=== PATIENT | female | born 1935 | race Caucasian/White ===

== ENCOUNTER 2017-05-07 05:11 | Emergency (ER) | payer OTHER ==
[~2017-05-07] VITALS: Ht 160 cm; Wt 50.0 kg
[~2017-05-07 05:11] MED LIST: DOCU-144 PO; HYD25 PO; HYDR-902 PO; UNKOWN HTN RX
[2017-05-07 05:13] VITALS: Ht 160 cm; Wt 50.0 kg
[2017-05-07 06:11] LABS: ADD SCAN DIFF NO
[2017-05-07 06:14] LABS: BASOPHIL # 0.1 10^3/ul (0.0-0.1); BASOPHILS % 1.4 % (0.0-2.0); EOSINOPHILS # 0.1 10^3/ul (0.0-0.5); EOSINOPHILS % 0.6 % (0.0-7.0); HEMATOCRIT 44.2 % (37.0-47.0); HEMOGLOBIN 15.3 g/dl (12.0-16.0); LYMPHOCYTES # 1.4 10^3/ul (0.8-2.9); LYMPHOCYTES % 13.8 % (15.0-51.0); MEAN CORPUSCULAR HEMOGLOBIN 35.7 pg (29.0-33.0); MEAN CORPUSCULAR HGB CONC 34.6 g/dl (32.0-37.0); MEAN CORPUSCULAR VOLUME 103.3 fl (82.0-101.0); MEAN PLATELET VOLUME 9.3 fl (7.4-10.4); MONOCYTE # 0.4 10^3/ul (0.3-0.9); MONOCYTES % 4.1 % (0.0-11.0); NEUTROPHIL # 8.2 10^3/ul (1.6-7.5); NEUTROPHILS % 79.6 % (39.0-77.0); PLATELET COUNT 140 10^3/UL (140-415); RED BLOOD COUNT 4.28 10^6/ul (4.20-5.40); RED CELL DISTRIBUTION WIDTH 12.7 % (11.5-14.5); WHITE BLOOD COUNT 10.3 10^3/ul (4.8-10.8)
--- NOTE | 2017-05-07 06:29 | ERD ---
ER Documentation Chief Complaint Date/Time DATE: 05/07/17 TIME: 06:26 Chief Complaint BRITNEY RODRIGUEZ from home, constipation, anal pain HPI Patient is an 82-year-old female who presents with 1 week of constipation associated with 1-2 days of rectal bleeding during straining. She states that she sees a few drops of blood in the toilet while straining to defecate. She feels like she needs to defecate, but is unable to pass stool. She reports a history of hemorrhoids. She reports that 2 weeks ago she was also constipated, and as she is trying to have a bowel movement, she had a large volume of bleeding. She did pass stool at that time, and the bleeding resolved. The patient denies abdominal pain, vomiting. She denies fever. ROS All systems reviewed and are negative except as per history of present illness. Medications Home Meds Active Scripts Hydrocortisone* Rectal (Preparation H* Cream) 1% - 26 Gm Cream.gm., 1 APPLIC [place] BID for 7 Days, #1 TUB Prov:HARLEEN KEBEDE MD 05/07/17 Polyethylene Glycol* (Miralax*) 17 Gm Powd.pack, 17 GM PO DAILY, #5 PACKET Prov:HARLEEN KEBEDE MD 05/07/17 Mineral Oil* (Fleet* Mineral Oil Enema) 133 Ml Oil, 133 ML NH NEEDED Y for CONSTIPATION, #3 ENEMA Prov:HARLEEN KEBEDE MD 05/07/17 Lidocaine (LIDOCAINE) 35.44 Gm Oint...g., 35.44 GM TP BID for 7 Days, #1 TUB Prov:HARLEEN KEBEDE MD 05/07/17 Discontinued Reported Medications [Unkown Htn Rx] No Conflict Check 06/25/16 Discontinued Scripts Hydrochlorothiazide* (Hydrochlorothiazide*) 25 Mg Tab, 25 MG PO DAILY, #30 TAB Prov:LC CORTEZ MD 06/25/16 Docusate Sodium* (Colace*) 100 Mg Capsule, 100 MG PO TID, #30 CAP Prov:LC CORTEZ MD 06/25/16 Hydrocodone/Acetaminophen (Issue 10-325 Tablet) 1 Each Tablet, 1 TAB PO Q6H Y for PAIN, #7 TAB Prov:LC CORTEZ MD 06/25/16 Allergies Allergies: Coded Allergies: No Known Allergies (Unverified Allergy, Unknown, 05/07/17) PMhx/Soc Past medical history: Psoriasis Past surgical history: Denies Social history: Patient drinks 1 glass filled 50% with vodka 2 times a day. She denies tobacco or illicit drugs. History of Surgery: No Anesthesia Reaction: No Hx Neurological Disorder: No Hx Respiratory Disorders: No Hx Cardiac Disorders: Yes (HTN, [place]) Hx Psychiatric Problems: No Hx Miscellaneous Medical Probl: Yes (HYPOTHYROID psoraisis) Hx Alcohol Use: Yes (2ce a day) Hx Substance Use: No Hx Tobacco Use: No Smoking Status: Never smoker FmHx Family History: No coronary disease, No diabetes Physical Exam Vitals Vital Signs Date Time Temp Pulse Resp B/P Pulse Ox O2 Delivery O2 Flow Rate FiO2 05/07/17 05:13 97.7 85 18 187/101 98 Physical Exam Const: Alert, no acute distress Head: Atraumatic Eyes: Normal Conjunctiva, no pallor, no icterus ENT: Normal External Ears, Nose and Mouth. Neck: Full range of motion..~ No meningismus. Resp: Clear to auscultation bilaterally, no wheezes, no rales Cardio: Regular rate and rhythm, no murmurs Abd: Soft, non tender, non distended. No guarding or rebound Rectal: Large external hemorrhoid, pink, soft, no active bleeding Skin: No petechiae or rashes Back: No midline or flank tenderness Ext: No cyanosis, or edema Neur: Awake and alert, cranial nerves II through XII intact bilaterally, strength and sensation full in 4 extremities. Psych: Normal Mood and Affect Result Diagram: 05/07/17 0550 05/07/17 0550 Results 24 hrs Laboratory Tests Test 05/07/17 05:50 White Blood Count 10.310^3/ul Red Blood Count 4.2810^6/ul Hemoglobin 15.3g/dl Hematocrit 44.2% Mean Corpuscular Volume 103.3fl Mean Corpuscular Hemoglobin 35.7pg Mean Corpuscular Hemoglobin Concent 34.6g/dl Red Cell Distribution Width 12.7% Platelet Count 11454^3/UL Mean Platelet Volume 9.3fl Neutrophils % 79.6% Lymphocytes % 13.8% Monocytes % 4.1% Eosinophils % 0.6% Basophils % 1.4% Nucleated Red Blood Cells % 0.0/100WBC Neutrophils # 8.210^3/ul Lymphocytes # 1.410^3/ul Monocytes # 0.410^3/ul Eosinophils # 0.110^3/ul Basophils # 0.110^3/ul Nucleated Red Blood Cells # 0.010^3/ul Prothrombin Time 13.1Sec Prothrombin Time Ratio 1.0 INR International Normalized Ratio 0.99 Activated Partial Thromboplast Time 27.1Sec Sodium Level 137mmol/L Potassium Level 3.1mmol/L Chloride Level 93mmol/L Carbon Dioxide Level 27mmol/L Anion Gap 20 Blood Urea Nitrogen 12mg/dl Creatinine 1.07mg/dl Glucose Level 142mg/dl Calcium Level 9.7mg/dl Total Bilirubin 1.2mg/dl Direct Bilirubin 0.00mg/dl Indirect Bilirubin 1.2mg/dl Aspartate Amino Transf (AST/SGOT) 65IU/L Alanine Aminotransferase (ALT/SGPT) 35IU/L Alkaline Phosphatase 106IU/L Total Protein 8.1g/dl Albumin 4.6g/dl Globulin 3.50g/dl Albumin/Globulin Ratio 1.31 Current Medications Medications (Trade) Dose Ordered Sig/Gage Route PRN Reason Start Time Stop Time Status Last Admin Dose Admin Sodium Biphosphate/ Sodium Phosphate (Fleet Enema) 133 ml ONCE ONCE NH 05/07/17 06:30 05/07/17 06:31 DC 05/07/17 06:58 Potassium Chloride (Klor-Con 20) 20 meq ONCE STAT PO 05/07/17 07:30 05/07/17 07:35 DC 05/07/17 08:26 Procedures/MDM MDM: Patient is an 82-year-old female who presents with 1 week of constipation associated with rectal pain and small amount of bleeding when she attempts to defecate. The patient was given an enema in the ER and was able to pass stool. KUB was performed and shows no evidence of fecal impaction or obstruction, but shows large amount of stool in the colon. The patient has a benign abdominal exam. The patient was found to have hypokalemia, but her labs are otherwise unremarkable. There is a normal hemoglobin and no evidence of significant blood loss. Her hemorrhoid is not thrombosed. I will discharge the patient with prescriptions for preparation H and topical lidocaine for hemorrhoid treatment, and MiraLAX and Fleet enema for treatment of constipation. I have advised patient to follow-up with her PMD if her symptoms do not improve in order to get a referral to colorectal surgery. Patient was given p.o. potassium for her hypokalemia. Departure Diagnosis: Primary Impression: Hemorrhoid Hemorrhoid type: unspecified Qualified Code: K64.9 - Hemorrhoids, unspecified hemorrhoid type Additional Impressions: Constipation Constipation type: unspecified constipation type Qualified Code: K59.00 - Constipation, unspecified constipation type Hypokalemia Condition: HARLEEN Paredes MD May 07, 2017 06:28
[2017-05-07] MEDS ORDERED: NA PHOSPHATE/BIPHOS 133 ML ENEMA PR ONE (06:30)
[2017-05-07 06:34] LABS: INR 0.99; PROTIME 13.1 Sec (12.2-14.2)
[2017-05-07 06:35] LABS: PARTIAL THROMBOPLASTIN TIME 27.1 Sec (25.0-35.0)
[2017-05-07 06:54] LABS: ALBUMIN 4.6 g/dl (3.3-4.9); ALBUMIN/GLOBULIN RATIO 1.31; BILIRUBIN,INDIRECT 1.2 mg/dl (0-1.1); BILIRUBIN,TOTAL 1.2 mg/dl (0.2-1.3); CALCIUM 9.7 mg/dl (8.4-10.2); CREATININE 1.07 mg/dl (0.44-1.00); POTASSIUM 3.1 mmol/L (3.5-5.1); TOTAL PROTEIN 8.1 g/dl (6.1-8.1)
[2017-05-07] MEDS ORDERED: POTASSIUM CHLORIDE (SR) 20 MEQ TAB PO STA (07:30)
--- NOTE | 2017-05-07 09:23 | RADRPT ---
PROCEDURE: XR Abdomen. CLINICAL INDICATION: constipation TECHNIQUE: AP abdomen x-ray. COMPARISON: None. FINDINGS: There is stool and bowel gas scattered throughout the colon. There is no evidence of small bowel ob struction. There are no abnormal calcifications overlying the urinary tracts. There are marked degenerative changes seen in the right hip joint. IMPRESSION: 1. Stool and bowel gas is seen throughout the colon. 2. Marked degenerative changes are seen in the right hip joint. RPTAT:AAJJ Physician Ben Date Time Electronically viewed and signed by Octavio Cisse Physician on 05/07/2017 09:22 /
[2017-05-07] MEDS ORDERED: LIDO5OI35 TP (09:50)
[2017-05-07] MEDS ORDERED: HYDR26CR PR (09:52)
[2017-05-07] MEDS ORDERED: POLY17PO6 PO (09:52)
[2017-05-07] MEDS ORDERED: FLEETOIL PR (09:52)
== END 2017-05-07 11:26 | disposition home or self-care (01) ==
LOC: E/R 05:11
DX: K64.9 Unspecified hemorrhoids (principal); E87.6 Hypokalemia; I10 Essential (primary) hypertension; R10.9 Unspecified abdominal pain
CPT/HCPCS: 36415; 74000; 80053; 85025; 85610; 85730; 86850; 86900; 86901; 93005

== ENCOUNTER 2017-09-03 21:33 | Inpatient (IN) | payer OTHER ==
[~2017-09-03] VITALS: Ht 157.5 cm; Wt 52.7 kg
[~2017-09-03 21:33] MED LIST changes: -DOCU-144 PO; -HYD25 PO; -HYDR-902 PO; +HYDR26CR PR; +LIDO35.415 TP; +MINE133E23 PR; +POLY17PO6 PO; -UNKOWN HTN RX
--- NOTE | 2017-09-04 00:46 | RADRPT ---
PROCEDURE: Left knee. CLINICAL INDICATION: Pain. TECHNIQUE: Three views including AP, lateral and oblique views of the left knee were obtained. T he images reviewed on a PACS workstation. COMPARISON: None. FINDINGS: There is no fracture, dislocation or bone destruction. There is moderate narrowing of the lateral c ompartment with marginal osteophytes present. There is spurring of the tibial spine. There is a mode rate joint effusion. Bone mineralization is decreased. There is no radiopaque foreign body or abno rmal calcification. IMPRESSION: No evidence of fracture. Moderate osteoarthritis. Moderate joint effusion. Osteopenia. .Ganga Vinson MD, MD Date Time Electronically viewed and signed by .Ganga Vinson MD, MD on 09/04/2017 00:45 .T/
--- NOTE | 2017-09-04 01:00 | ERD ---
ER Documentation Chief Complaint Chief Complaint BRITNEY [id number] FROM HOME,C/O LEFT LEG PAIN R/T TRIP & FALL FROM 2 DAYS AGO HPI This is an 82-year-old female with a past medical history of hypothyroidism, psoriasis, previous colectomy, no obvious history of dementia, unclear where she lives who is presenting via ambulance with concerns of a left knee injury. The patient reports that she hurt her knee several years ago and she is been dealing with pain and swelling in that leg then. At some point over the last few days, the patient endorses twisting her knee and she has been having difficulty with ambulation since then. The patient does not endorse any other traumatic injury. She denies headache or vision changes. She denies nausea or vomiting. She denies neck or back pain. She denies chest pain or trouble breathing. She denies abdominal pain. She denies changes to bowel movements urination. She denies any focal deficits. She denies any weakness or numbness or tingling to the face or extremities. That said, the patient is currently alert and oriented only to person. Based on previous records that have been reviewed, I do not see an obvious history of dementia. ROS All systems reviewed and are negative except as per history of present illness. Medications Home Meds Active Scripts Hydrocortisone* Rectal (Preparation H* Cream) 1% - 26 Gm Cream.gm., 1 APPLIC [place] BID for 7 Days, #1 TUB Prov:HARLEEN KEBEDE MD 05/07/17 Polyethylene Glycol* (Miralax*) 17 Gm Powd.pack, 17 GM PO DAILY, #5 PACKET Prov:HARLEEN KEBEDE MD 05/07/17 Mineral Oil* (Fleet* Mineral Oil Enema) 133 Ml Oil, 133 ML [place] NEEDED Y for CONSTIPATION, #3 ENEMA Prov:HARLEEN KEBEDE MD 05/07/17 Lidocaine (LIDOCAINE) 35.44 Gm Oint...g., 35.44 GM TP BID for 7 Days, #1 TUB Prov:HARLEEN KEBEDE MD 05/07/17 Allergies Allergies: Coded Allergies: No Known Allergies (Unverified Allergy, Unknown, 05/07/17) PMhx/Soc History of Surgery: No Anesthesia Reaction: No Hx Neurological Disorder: No Hx Respiratory Disorders: No Hx Cardiac Disorders: Yes (HTN, [place]) Hx Psychiatric Problems: No Hx Miscellaneous Medical Probl: Yes (HYPOTHYROID, psoriasis) Hx Alcohol Use: Yes (occasionally) Hx Substance Use: No Hx Tobacco Use: No Smoking Status: Never smoker FmHx Unable to ascertain from the patient Physical Exam Vitals Vital Signs Date Time Temp Pulse Resp B/P Pulse Ox O2 Delivery O2 Flow Rate FiO2 09/04/17 01:00 76 18 145/70 96 Room Air 09/03/17 21:44 97.0 82 18 155/72 94 Physical Exam Const: No apparent distress, well-developed, well-nourished Head: Atraumatic Eyes: Normal Conjunctiva. Extraocular movements intact. ENT: Normal External Ears, Nose and Mouth. Neck: Full range of motion. No meningismus. Resp: Clear to auscultation bilaterally Cardio: Regular rate and rhythm, no murmurs Abd: Soft, non tender, non distended. Normal bowel sounds Skin: No petechiae or rashes Back: No midline or flank tenderness Ext: No cyanosis, or edema. + Left Knee Effusion with tenderness and decreased ROM 2/2 discomfort. Popliteal and DP pulse intact. Strength and sensation intact distal to the knee. No warmth or erythema to the knee. Neur: Awake and alert, oriented 1 to person. Cranial nerves intact. No facial droop. Normal strength and sensation in all extremities. Coordination with finger to nose normal. Psych: Normal Mood and Affect Results 24 hrs Laboratory Tests Test 09/04/17 02:30 White Blood Count Pending Red Blood Count Pending Hemoglobin Pending Hematocrit Pending Mean Corpuscular Volume Pending Mean Corpuscular Hemoglobin Pending Mean Corpuscular Hemoglobin Concent Pending Red Cell Distribution Width Pending Platelet Count Pending Mean Platelet Volume Pending Procedures/MDM MDM The patient's presentation warrants further investigation. The patient's primary complaint is knee pain, which will be evaluated. However, the patient does appear to have signs of cognitive impairment. There is evidence to suggest that this is dementia, but the patient's baseline is unclear and there is no family to discuss her normal mental status. With the lack of information, I do intend to work her up more thoroughly for trauma. LABS - Pending IMAGING XR Knee FINDINGS: There is no fracture, dislocation or bone destruction. There is moderate narrowing of the lateral compartment with marginal osteophytes present. There is spurring of the tibial spine. There is a moderate joint effusion. Bone mineralization is decreased. There is no radiopaque foreign body or abnormal calcification. IMPRESSION: No evidence of fracture. Moderate osteoarthritis. Moderate joint effusion. Osteopenia. .Ganga Vinson MD, MD Date Time Electronically viewed and signed by .Ganga Vinson MD, MD on 09/04/2017 00:45 CXR FINDINGS: The heart is normal in size. The thoracic aortic arch is ectatic. The lungs are clear. There is no pleural effusion or pneumothorax. Senescent osseous changes are present. IMPRESSION: No acute pulmonary disease. Ectatic thoracic aortic arch. Senescent osseous changes. Electronically viewed and signed by Physician Sonia on 09/04/2017 02 :26 CT Head FINDINGS: There is no intracranial hemorrhage, mass effect, or midline shift. No extra-axial fluid collection is seen. Moderate generalized parenchymal volume loss is identified with compensatory ventricular and sulcal enlargement. Moderate decreased attenuation is seen in the periventricular and deep white matter, compatible with microvascular ischemic disease. There is a remote lacunar infarct within the left basal ganglia. The fisher white matter differentiation is well preserved with no acute infarct detected. The osseous structures . Minimal mucosal thickening of the posterior right ethmoid sinus is present. IMPRESSION: 1. No evidence of acute intracranial pathology. 2. Moderate diffuse generalized parenchymal volume loss. 3. There is moderate microvascular ischemic disease in the periventricular and deep white matter. 4. Remote lacunar infarct within the left basal ganglia. Electronically viewed and signed by Physician Sonia on 09/04/2017 02 :17 TREATMENT/DISPOSITION Given the patient's altered mentation, I am not convinced that she is safe to go home. She may require admission to the hospital for further assessment. The patient's only obvious injury is to that of the knee. I do not see obvious fracture, but ligamentous injury has not been ruled out. The patient was offered a therapeutic arthrocentesis, but she declined indicating to me that her knee pain had subsided some. The patient also declined an rigoberto wrap, a knee immobilizer and crutches. It is unclear what intervention that patient was hoping to have had completed in the ER. The patient was signed out to the oncoming ER physician pending her blood work. I suspect admission, but he final disposition will be made by the oncoming doctor once the full workup is completed. The patient is a poor historian, and given the lack of previous evidence of altered mentation, I suspect further underlying pathology beyond simply twisting her knee. The patient's blood pressure was elevated at greater than 120/80 while in the emergency department. The patient was otherwise stable with no evidence of hypertensive urgency or emergency. The patient will require reevaluation of his blood pressure in 2-3 days, but this may be completed by a primary care physician as an outpatient. She does not require admission for blood pressure control. Departure Diagnosis: Primary Impression: Left knee pain Chronicity: unspecified Qualified Code: M25.562 - Left knee pain, unspecified chronicity Additional Impressions: Effusion, left knee Altered mental status Altered mental status type: unspecified Qualified Code: R41.82 - Altered mental status, unspecified altered mental status type Condition: JESUS Peralta MD Sep 04, 2017 01:00
--- NOTE | 2017-09-04 02:18 | RADRPT ---
PROCEDURE: CT Brain without contrast. CLINICAL INDICATION: Trauma. TECHNIQUE: A CT of the brain was performed on a GE CT scanner utilizing axial imaging from the sku ll base through the vertex without intravenous contrast. Multiplanar reformatted images were made. The CTDIvol is 44.63 mGy and the DLP is 720.23 mGycm. One or more of the following dose reduction techniques were used: - Automated exposure control. - Adjustment of the mA and/or kV according to patient size. - Use of iterative reconstruction technique. COMPARISON: CT BRAIN 01/18/2009 FINDINGS: There is no intracranial hemorrhage, mass effect, or midline shift. No extra-axial fluid collection is seen. Moderate generalized parenchymal volume loss is identified with compensatory ventricular and sulcal enlargement. Moderate decreased attenuation is seen in the periventricular and deep whit e matter, compatible with microvascular ischemic disease. There is a remote lacunar infarct within t he left basal ganglia. The fisher white matter differentiation is well preserved with no acute infarct detected. The osseous structures . Minimal mucosal thickening of the posterior right ethmoid sinus is present . IMPRESSION: 1. No evidence of acute intracranial pathology. 2. Moderate diffuse generalized parenchymal volume loss. 3. There is moderate microvascular ischemic disease in the periventricular and deep white matter. 4. Remote lacunar infarct within the left basal ganglia. RPTAT: HRSR Physician Sonia Date Time Electronically viewed and signed by Physician Sonia on 09/04/2017 02:17 /
--- NOTE | 2017-09-04 02:26 | RADRPT ---
PROCEDURE: XR Chest. CLINICAL INDICATION: Trauma TECHNIQUE: Single portable view of the chest was obtained. COMPARISON: 04/01/2014. FINDINGS: The heart is normal in size. The thoracic aortic arch is ectatic. The lungs are clear. There is no pleural effusion or pneumothorax. Senescent osseous changes are present. IMPRESSION: 1. No acute pulmonary disease. 2. Ectatic thoracic aortic arch. 3. Senescent osseous changes. RPTAT: HRSR Physician Sonia Date Time Electronically viewed and signed by Physician Sonia on 09/04/2017 02:26 RR/
[2017-09-04 02:49] LABS: BASOPHIL # 0.1 10^3/ul (0.0-0.1); BASOPHILS % 0.7 % (0.0-2.0); EOSINOPHILS # 0.3 10^3/ul (0.0-0.5); EOSINOPHILS % 3.4 % (0.0-7.0); HEMATOCRIT 33.7 % (37.0-47.0); HEMOGLOBIN 11.5 g/dl (12.0-16.0); LYMPHOCYTES # 1.4 10^3/ul (0.8-2.9); LYMPHOCYTES % 16.3 % (15.0-51.0); MEAN CORPUSCULAR HEMOGLOBIN 35.4 pg (29.0-33.0); MEAN CORPUSCULAR HGB CONC 34.1 g/dl (32.0-37.0); MEAN CORPUSCULAR VOLUME 103.7 fl (82.0-101.0); MEAN PLATELET VOLUME 10.3 fl (7.4-10.4); MONOCYTE # 0.7 10^3/ul (0.3-0.9); MONOCYTES % 8.3 % (0.0-11.0); NEUTROPHIL # 5.9 10^3/ul (1.6-7.5); NEUTROPHILS % 70.8 % (39.0-77.0); RED BLOOD COUNT 3.25 10^6/ul (4.20-5.40); RED CELL DISTRIBUTION WIDTH 12.7 % (11.5-14.5); WHITE BLOOD COUNT 8.3 10^3/ul (4.8-10.8)
[2017-09-04 03:09] LABS: ALBUMIN 3.8 g/dl (3.3-4.9); BILIRUBIN,INDIRECT 0.6 mg/dl (0-1.1); BILIRUBIN,TOTAL 0.6 mg/dl (0.2-1.3); CALCIUM 9.6 mg/dl (8.4-10.2); CREATININE 0.72 mg/dl (0.44-1.00); POTASSIUM 3.7 mmol/L (3.5-5.1); TOTAL PROTEIN 7.8 g/dl (6.1-8.1)
[2017-09-04 03:26] LABS: PLATELET COUNT 211 10^3/UL (140-415); POSITIVE DIFF @See below
[2017-09-04 03:30] LABS: INR 1.18; PARTIAL THROMBOPLASTIN TIME 37.5 Sec (25.0-35.0); PROTIME 15.1 Sec (12.2-14.2); PT RATIO 1.2
[2017-09-04] MEDS ORDERED: ACETAMINOPHEN 500 MG TAB PO STA (03:36)
[2017-09-04] MEDS ORDERED: ACETAMINOPHEN 325 MG TAB PO PRN ×2 (06:00→09:30)
[2017-09-04] MEDS ORDERED: ONDANSETRON 4 MG INJ IV PRN ×2 (06:00→09:30)
[2017-09-04 08:19] VITALS: TEMP 98.3
--- NOTE | 2017-09-04 09:24 | HP ---
Date/Time of Note Date/Time of Note DATE: 09/04/17 TIME: 09:24 Assessment/Plan VTE Prophylaxis VTE Prophylaxis Intervention: LMWH Assessment/Plan Assessment/Plan 1. Left knee swelling secondary to fall - patient states she has been experiencing knee pain and swelling for the past 4 months but does not recollect her fall - Xray of knee showed no acute fractures, moderate osteoarthritis, moderate joint effusion, and Osteopenia. - Offered MRI but patient states her knee is fine and she just wants to rest. Will reevaluate in the am. -PT/OT evaluation ordered. Patient states she lives along and grandson comes to check on her 2. Gait instability - PT/OT evaluation - B12 and folate levels ordered 3. Anemia, macrocytic - iron deficient. will start on supplements - b12 and folate levels ordered 4. Hypothyroidism - will check TSH level - unsure what home dose patient on at home 5. Mild malnutrition - Boost with meals ordered - encourage PO intake - Patient states she can go all day at times without eating 6. ?Dementia - Oriented to self and place - unable to give clear history 7. Psoriasis - hydrocortisone for plaques 8. GI ppx - pepcid 9. DVT ppx - Lovenox 10. Diet - regular diet - Boost supplement 11. Code - Full 12. Disposition - Reassess knee in am if need for MRI - PT/OT evaluation for placement HPI/ROS Admit Date/Time Admit Date/Time Sep 04, 2017 at 05:34 Hx of Present Illness 82 yo F with PMH hypothyroidism, psoriasis, previous colectomy, no obvious history of dementia, and psoriasis presented to ED for left knee pain after a fall. Patient is a poor historian and states she has been experiencing left knee issues for the past 4 months. States does not remember fall a few days ago but has been falling often secondary to feeling unsteady on her feed. She also has been experiencing weight loss secondary to poor PO intake/appetite. She states she lives alone and grandson will come check on her from time to time. She denies any head trauma, dizziness, nausea, vomiting, headaches, chest pain, shortness of breath, or abdominal issues. She states that her knee has been swollen for months and states it will be okay and refused further imaging when offered MRI to assess for further injury. She would like to be left alone to rest and willing to work with physical therapy tomorrow. Denies any issues with urination, focal deficits, weakness or numbness to extremities. ROS All 12 systems reviewed and pertinent positives as per HPI. All others negative. Constitutional: fatigue, poor po, weight change, No diaphoresis, No nausea Eyes: no complaints ENT: no complaints Respiratory: No cough, No shortness of breath, No sputum, No wheezing Cardiovascular: No chest pain, No edema, No lightheadedness, No orthopenea, No palpitations Gastrointestinal: constipation, No diarrhea, No nausea, No pain, No vomiting Genitourinary: no complaints Musculoskeletal: bone/joint pain (left knee swelling and pain) Skin: No pruritis, No rash Neurologic: confusion, No dizziness, No focal-weakness, No headache, No syncope Endocrine: no complaints Lymphatic: no complaints Psychological: no complaints Immunologic: no complaints PMH/Family/Social Past Medical History Medical History: coronary artery disease, hypothyroid, other (psoriasis) Past Surgical History Past Surgical Hx: other (unable to obtain from patient but per old records, partial colectomy) Family History Significant Family History: no pertinent family hx Social History Alcohol Use: none Smoking Status: Never smoker Drug Use: none Exam/Review of Systems Vital Signs Vitals Vital Signs Date Time Temp Pulse Resp B/P Pulse Ox O2 Delivery O2 Flow Rate FiO2 09/04/17 08:19 98.3 77 20 178/89 99 Room Air Exam Constitutional: alert, frail, oriented Psych: nl mood/affect Head: atraumatic, normocephalic Eyes: EOMI, PERRL ENMT: mucosa pink and moist Neck: non-tender, supple Respiratory: clear to auscultation, No crackles/rales, No wheezing Cardiovascular: regular rate and rhythm, No murmurs/extra sounds, No systolic murmur Gastrointestinal: bowel sounds, non-tender, soft, No distended, No rebound or guarding Genitourinary - Female: No CVA tenderness Musculoskeletal: joint tenderness, swelling (left knee) Extremities: normal pulses, No calf tenderness, No clubbing, No edema Neurological: RAW [employer]PARER II-XII intact, confused, nl speech Skin: nl turgor Lymph: nl lymph nodes Labs Result Diagram: 09/04/17 0230 09/04/17 0230 Medications Medications Home medications reviewed Procedures Procedures PROCEDURE: Left knee. CLINICAL INDICATION: Pain. TECHNIQUE: Three views including AP, lateral and oblique views of the left knee were obtained. The images reviewed on a PACS workstation. COMPARISON: None. FINDINGS: There is no fracture, dislocation or bone destruction. There is moderate narrowing of the lateral compartment with marginal osteophytes present. There is spurring of the tibial spine. There is a moderate joint effusion. Bone mineralization is decreased. There is no radiopaque foreign body or abnormal calcification. IMPRESSION: No evidence of fracture. Moderate osteoarthritis. Moderate joint effusion. Osteopenia. PROCEDURE: XR Chest. CLINICAL INDICATION: Trauma TECHNIQUE: Single portable view of the chest was obtained. COMPARISON: 04/01/2014. FINDINGS: The heart is normal in size. The thoracic aortic arch is ectatic. The lungs are clear. There is no pleural effusion or pneumothorax. Senescent osseous changes are present. IMPRESSION: 1. No acute pulmonary disease. 2. Ectatic thoracic aortic arch. 3. Senescent osseous changes. PROCEDURE: CT Brain without contrast. CLINICAL INDICATION: Trauma. TECHNIQUE: A CT of the brain was performed on a [employer] CT scanner utilizing axial imaging from the skull base through the vertex without intravenous contrast. Multiplanar reformatted images were made. The CTDIvol is 44.63 mGy and the DLP is 720.23 mGycm. One or more of the following dose reduction techniques were used: - Automated exposure control. - Adjustment of the mA and/or kV according to patient size. - Use of iterative reconstruction technique. COMPARISON: CT BRAIN 01/18/2009 FINDINGS: There is no intracranial hemorrhage, mass effect, or midline shift. No extra- axial fluid collection is seen. Moderate generalized parenchymal volume loss is identified with compensatory ventricular and sulcal enlargement. Moderate decreased attenuation is seen in the periventricular and deep white matter, compatible with microvascular ischemic disease. There is a remote lacunar infarct within the left basal ganglia. The fisher white matter differentiation is well preserved with no acute infarct detected. The osseous structures . Minimal mucosal thickening of the posterior right ethmoid sinus is present. IMPRESSION: 1. No evidence of acute intracranial pathology. 2. Moderate diffuse generalized parenchymal volume loss. 3. There is moderate microvascular ischemic disease in the periventricular and deep white matter. 4. Remote lacunar infarct within the left basal ganglia. MANDY MÉNDEZ MD Sep 04, 2017 09:24
[2017-09-04 09:26] VITALS: BP 146/70; PULSE 74; RESP 20
[2017-09-04] MEDS ORDERED: NACL 0.9% 3 ML SYG IV SCH (09:30)
[2017-09-04] MEDS ORDERED: MAGNESIUM HYDROXIDE 30ML CUP PO PRN (09:30)
[2017-09-04] MEDS ORDERED: DOCUSATE SODIUM 100 MG CAP PO PRN (09:30)
[2017-09-04] MEDS: FAMOTIDINE 20 MG TAB PO SCH (10:00)
[2017-09-04] MEDS: HYDROCORTISONE 1% 28.35 GM OINT TOP SCH ×2 (10:48→21:29)
[2017-09-04 10:54] LABS: IRON 25 ug/dl (35-150)
[2017-09-04 11:04] LABS: TOTAL IRON BINDING CAPACITY 248 ug/dl (241-421)
[2017-09-04 11:34] VITALS: Ht 157.5 cm; Wt 52.7 kg
[2017-09-04 14:20] VITALS: BP 139/66; RESP 16
[2017-09-04] MEDS: HYDROCODONE/APAP (5/325) TAB PO PRN (18:54)
[2017-09-04 20:00] VITALS: BP 156/74; RESP 17
[2017-09-04 20:44] LABS: FOLATE 8.3 ng/ml (2.8-20.0)
[2017-09-05] VITALS (7 sets, daily range): BP systolic 124–179; BP diastolic 63–82; PULSE 78–91; RESP 16–18
[2017-09-05] MEDS: HYDROCODONE/APAP (5/325) TAB PO PRN ×2 (02:04→15:58)
[2017-09-05 06:06] LABS: BASOPHIL # 0.1 10^3/ul (0.0-0.1); EOSINOPHILS # 0.4 10^3/ul (0.0-0.5); EOSINOPHILS % 5.3 % (0.0-7.0); HEMATOCRIT 30.6 % (37.0-47.0); HEMOGLOBIN 10.1 g/dl (12.0-16.0); LYMPHOCYTES # 1.2 10^3/ul (0.8-2.9); LYMPHOCYTES % 17.7 % (15.0-51.0); MEAN CORPUSCULAR HEMOGLOBIN 33.9 pg (29.0-33.0); MEAN CORPUSCULAR VOLUME 102.7 fl (82.0-101.0); MEAN PLATELET VOLUME 9.9 fl (7.4-10.4); MONOCYTE # 0.7 10^3/ul (0.3-0.9); MONOCYTES % 10.2 % (0.0-11.0); NEUTROPHIL # 4.5 10^3/ul (1.6-7.5); NEUTROPHILS % 65.1 % (39.0-77.0); PLATELET COUNT 241 10^3/UL (140-415); RED BLOOD COUNT 2.98 10^6/ul (4.20-5.40); RED CELL DISTRIBUTION WIDTH 13.1 % (11.5-14.5)
[2017-09-05 06:33] LABS: CALCIUM 8.9 mg/dl (8.4-10.2); CREATININE 0.72 mg/dl (0.44-1.00); MAGNESIUM 1.9 mg/dl (1.7-2.5); PHOSPHORUS 3.9 mg/dl (2.5-4.9); POTASSIUM 3.4 mmol/L (3.5-5.1)
[2017-09-05 06:59] LABS: THYROID STIMULATING HORMONE 48.2 MIU/L (0.465-4.680)
[2017-09-05] MEDS: FERROUS SULFATE (EC) 325 MG TAB PO SCH (08:50)
[2017-09-05] MEDS: ENOXAPARIN 40 MG/0.4 ML SYG SC SCH (08:51)
[2017-09-05] MEDS: HYDROCORTISONE 1% 28.35 GM OINT TOP SCH ×2 (08:51→21:00)
[2017-09-05] MEDS: ASPIRIN 81 MG TAB PO SCH (08:52)
[2017-09-05] MEDS: FAMOTIDINE 20 MG TAB PO SCH (08:52)
[2017-09-05] MEDS ORDERED: INFLUENZA VIRUS VACCINE 0.5 ML (DISPENSING) IM* ONE (09:00)
[2017-09-05] MEDS ORDERED: POTASSIUM CHLORIDE (SR) 20 MEQ TAB PO STA (09:16)
--- NOTE | 2017-09-05 09:28 | PN ---
Date/Time of Note Date/Time of Note DATE: 09/05/17 TIME: 09:25 Assessment/Plan VTE Prophylaxis VTE Prophylaxis Intervention: SCD's Lines/Catheters IV [facility]from [facility] Saline Lock Assessment/Plan Chief Complaint/Hosp Course Assessment and plan 1. Left knee swelling secondary to recent fall. Patient with left knee x-ray negative for any fracture. It did show however some moderate joint effusion and osteopenia. MRI was offered however patient at this time still refusing. Continue physical therapy/Occupational Therapy. 2. Unsteady gait. Physical therapy follow. Continue fall precautions. 3. Anemia. Noted to be iron deficient. Continue iron supplement. 4. Hypothyroidism. Will start on Synthroid. 5. Mild malnutrition. Will get dietary consultation. Encourage oral intake. 6. Dementia. Continue fall precautions. Continue with reorientation. 7. History of psoriasis. Continue had a cortisone complex. Disposition and plan: Continue with physical therapy/Occupational Therapy. Patient reportedly lives alone. Will get social work to follow. Will start on hydralazine for elevated blood pressure. Continue in-house monitoring. Will likely need placement. Discussed plan of care with Dr. Sheldon Problems: Subjective 24 Hr Interval Summary Free Text/Dictation Slightly confused. She reports having some pain on left knee. Occupational therapist at bedside. Blood pressure noted to be elevated at this time. Exam/Review of Systems Vital Signs Vitals Vital Signs Date Time Temp Pulse Resp B/P Pulse Ox O2 Delivery O2 Flow Rate FiO2 09/05/17 08:08 98.3 79 16 166/76 95 09/04/17 09:26 Room Air Intake and Output 09/04/17 09/04/17 09/05/17 15:00 23:00 07:00 Intake Total 280 ml 440 ml Balance 280 ml 440 ml Exam Constitutional: alert (Forgetful) Head: normocephalic Eyes: nl conjunctiva Neck: supple Respiratory: clear to auscultation Cardiovascular: other (Regular rate) Gastrointestinal: non-tender, soft Musculoskeletal: swelling (Left knee. Pain on palpation) Neurological: nl speech (Alert to self and place) Skin: nl turgor Results Result Diagram: 09/05/17 0530 09/05/17 0530 Results 24 hrs Laboratory Tests Test 09/04/17 18:25 09/05/17 05:30 Vitamin B12 Level 362 Folate 8.3 White Blood Count 7.0 Red Blood Count 2.98 L Hemoglobin 10.1 L Hematocrit 30.6 L Mean Corpuscular Volume 102.7 H Mean Corpuscular Hemoglobin 33.9 H Mean Corpuscular Hemoglobin Concent 33.0 Red Cell Distribution Width 13.1 Platelet Count 241 Mean Platelet Volume 9.9 Neutrophils % 65.1 Lymphocytes % 17.7 Monocytes % 10.2 Eosinophils % 5.3 Basophils % 1.0 Nucleated Red Blood Cells % 0.0 Neutrophils # 4.5 Lymphocytes # 1.2 Monocytes # 0.7 Eosinophils # 0.4 Basophils # 0.1 Nucleated Red Blood Cells # 0.0 Sodium Level 142 Potassium Level 3.4 L Chloride Level 105 Carbon Dioxide Level 29 Anion Gap 11 Blood Urea Nitrogen 23 H Creatinine 0.72 Glucose Level 83 Calcium Level 8.9 Phosphorus Level 3.9 Magnesium Level 1.9 Thyroid Stimulating Hormone (TSH) 48.200 H Medications Medications Current Medications Ondansetron HCl (Zofran Inj) 4 mg Q6H PRN IV NAUSEA AND/OR VOMITING; Start 09/04/17 at 09:30 Acetaminophen (Tylenol Tab) 650 mg Q6H PRN PO PAIN LEVEL 1-3 OR FEVER; Start 09/04/17 at 09:30 Acetaminophen/ Hydrocodone Bitart ([place] (5/325)) 1 tab Q6H PRN PO MODERATE PAIN LEVEL 4-6 Last administered on 09/05/17 02:04; Admin Dose 1 TAB; Start at 09:30 Docusate Sodium (Colace) 100 mg Q12H PRN PO CONSTIPATION; Start 09/04/17 at 09: 30 Magnesium Hydroxide (Milk Of Mag) 30 ml DAILY PRN PO CONSTIPATION; Start at 09:30 Famotidine (Pepcid) 20 mg DAILY PO ; Start 09/04/17 at 10:00 Hydrocortisone (Hydrocortisone 1% Oint) 1 applic BID TOP Last administered on 09/05/17 08:51; Admin Dose 1 APPLIC; Start 09/04/17 at 11:00 Aspirin (Aspirin) 81 mg DAILY PO ; Start 09/05/17 at 09:00 Enoxaparin Sodium (Lovenox) 40 mg DAILY SC Last administered on 09/05/17 08:51 ; Admin Dose 40 MG; Start 09/05/17 at 09:00 Ferrous Sulfate (Ferrous Sulfate (Ec)) 325 mg DAILY PO Last administered on t 08:50; Admin Dose 325 MG; Start 09/05/17 at 09:00 Levothyroxine Sodium (Synthroid) 75 mcg DAILY@06 PO ; Start 09/05/17 at 09:30 KEERTHI MÉNDEZ Sep 05, 2017 09:28
[2017-09-05] MEDS: LEVOTHYROXINE 75 MCG TAB PO SCH (09:53)
[2017-09-05] MEDS: hydrALAzine 20 MG INJ IV PRN (13:42)
[2017-09-05] MEDS ORDERED: HALOPERIDOL 5 MG INJ ONE (20:12)
[2017-09-05] MEDS ORDERED: LORAZEPAM 2 MG INJ ONE ×2 (21:06→21:09)
[2017-09-05] MEDS ORDERED: HALOPERIDOL 5 MG INJ IM SCH (22:00)
[2017-09-05] MEDS ORDERED: LORAZEPAM 2 MG INJ IV PRN (22:00)
[2017-09-06 02:35] VITALS: BP 169/79; RESP 18
[2017-09-06] MEDS: LEVOTHYROXINE 75 MCG TAB PO SCH (05:41)
[2017-09-06 07:21] VITALS: BP 158/82; RESP 18
[2017-09-06] MEDS: ASPIRIN 81 MG TAB PO SCH (08:36)
[2017-09-06] MEDS: FAMOTIDINE 20 MG TAB PO SCH (08:36)
[2017-09-06] MEDS: FERROUS SULFATE (EC) 325 MG TAB PO SCH (08:36)
[2017-09-06] MEDS: HYDROCORTISONE 1% 28.35 GM OINT TOP SCH ×2 (08:37→20:36)
[2017-09-06] MEDS: HYDROCODONE/APAP (5/325) TAB PO PRN ×3 (08:42→23:12)
[2017-09-06] MEDS: ENOXAPARIN 40 MG/0.4 ML SYG SC SCH (08:45)
--- NOTE | 2017-09-06 09:21 | PN ---
Date/Time of Note Date/Time of Note DATE: 09/06/17 TIME: 09:13 Assessment/Plan VTE Prophylaxis VTE Prophylaxis Intervention: LMWH Lines/Catheters IV Catheter Type (from [facility]): Saline Lock Assessment/Plan Chief Complaint/Hosp Course Assessment and plan 1. Left knee swelling secondary to recent fall. Patient with left knee x-ray negative for any fracture. It did show however some moderate joint effusion and osteopenia. MRI was offered however patient at this time still refusing. Continue physical therapy/Occupational Therapy. 2. Unsteady gait. Physical therapy follow. Continue fall precautions. 3. Anemia. Noted to be iron deficient. Continue iron supplement. 4. Hypothyroidism. Will start on Synthroid. 5. Mild malnutrition. Will get dietary consultation. Encourage oral intake. 6. suspect hx Dementia. Continue fall precautions. Continue with reorientation. 7. History of psoriasis. Continue had a cortisone complex. Disposition and plan: Continue with physical therapy/Occupational Therapy. Patient reportedly lives alone. awaiting director of social work eval. Discussed with case management, will try for patient placement. Discussed plan of care with Dr. Sheldon Problems: Subjective 24 Hr Interval Summary Free Text/Dictation comfortable lying down. still has some pain on knee of palpation of left knee Exam/Review of Systems Vital Signs Vitals Vital Signs Date Time Temp Pulse Resp B/P Pulse Ox O2 Delivery O2 Flow Rate FiO2 09/06/17 07:21 98.0 80 18 158/82 96 09/04/17 09:26 Room Air Intake and Output 09/05/17 09/05/17 09/06/17 14:59 22:59 06:59 Intake Total 0 ml Balance 0 ml Exam Constitutional: alert (Forgetful) Head: normocephalic Eyes: nl conjunctiva Neck: supple Respiratory: clear to auscultation Cardiovascular: other (Regular rate) Gastrointestinal: non-tender, soft Musculoskeletal: swelling (Left knee. Pain on palpation) Neurological: nl speech (Alert to self and place) Skin: nl turgor Results Result Diagram: 09/05/17 0530 09/05/17 0530 Medications Medications Current Medications Ondansetron HCl (Zofran Inj) 4 mg Q6H PRN IV NAUSEA AND/OR VOMITING; Start 09/04/17 at 09:30 Acetaminophen (Tylenol Tab) 650 mg Q6H PRN PO PAIN LEVEL 1-3 OR FEVER; Start 09/04/17 at 09:30 Acetaminophen/ Hydrocodone Bitart ([place] (5/325)) 1 tab Q6H PRN PO MODERATE PAIN LEVEL 4-6 Last administered on 09/06/17 08:42; Admin Dose 1 TAB; Start at 09:30 Docusate Sodium (Colace) 100 mg Q12H PRN PO CONSTIPATION; Start 09/04/17 at 09: 30 Magnesium Hydroxide (Milk Of Mag) 30 ml DAILY PRN PO CONSTIPATION; Start at 09:30 Famotidine (Pepcid) 20 mg DAILY PO ; Start 09/04/17 at 10:00 Hydrocortisone (Hydrocortisone 1% Oint) 1 applic BID TOP Last administered on 09/05/17 08:51; Admin Dose 1 APPLIC; Start 09/04/17 at 11:00 Aspirin (Aspirin) 81 mg DAILY PO ; Start 09/05/17 at 09:00 Enoxaparin Sodium (Lovenox) 40 mg DAILY SC Last administered on 09/06/17 08:45 ; Admin Dose 40 MG; Start 09/05/17 at 09:00 Ferrous Sulfate (Ferrous Sulfate (Ec)) 325 mg DAILY PO Last administered on 08:50; Admin Dose 325 MG; Start 09/05/17 at 09:00 Levothyroxine Sodium (Synthroid) 75 mcg DAILY@06 PO Last administered on 09:53; Admin Dose 75 MCG; Start 09/05/17 at 09:30 Hydralazine HCl (Apresoline) 10 mg Q4H PRN IV sbp>160 Last administered on 09/05 13:42; Admin Dose 10 MG; Start 09/05/17 at 09:30 KEERTHI MÉNDEZ Sep 06, 2017 09:21
[2017-09-06 10:23] LABS: BASOPHIL # 0.1 10^3/ul (0.0-0.1); BASOPHILS % 0.9 % (0.0-2.0); EOSINOPHILS # 0.3 10^3/ul (0.0-0.5); EOSINOPHILS % 3.9 % (0.0-7.0); HEMATOCRIT 31.5 % (37.0-47.0); HEMOGLOBIN 10.6 g/dl (12.0-16.0); LYMPHOCYTES # 1.3 10^3/ul (0.8-2.9); LYMPHOCYTES % 19.6 % (15.0-51.0); MEAN CORPUSCULAR HEMOGLOBIN 35.1 pg (29.0-33.0); MEAN CORPUSCULAR HGB CONC 33.7 g/dl (32.0-37.0); MEAN CORPUSCULAR VOLUME 104.3 fl (82.0-101.0); MEAN PLATELET VOLUME 9.6 fl (7.4-10.4); MONOCYTE # 0.6 10^3/ul (0.3-0.9); MONOCYTES % 8.3 % (0.0-11.0); NEUTROPHIL # 4.4 10^3/ul (1.6-7.5); NEUTROPHILS % 66.8 % (39.0-77.0); PLATELET COUNT 267 10^3/UL (140-415); RED BLOOD COUNT 3.02 10^6/ul (4.20-5.40); RED CELL DISTRIBUTION WIDTH 13.2 % (11.5-14.5); WHITE BLOOD COUNT 6.6 10^3/ul (4.8-10.8)
[2017-09-06 10:39] LABS: CALCIUM 9.3 mg/dl (8.4-10.2); CREATININE 0.69 mg/dl (0.44-1.00); POTASSIUM 3.8 mmol/L (3.5-5.1)
[2017-09-06 15:40] VITALS: BP 169/92; PULSE 85
[2017-09-06] MEDS: hydrALAzine 20 MG INJ IV PRN ×2 (15:43→20:35)
[2017-09-06 16:11] VITALS: BP_SYST 150; BP_SYST 250; BP_DIAS 80; PULSE 89
[2017-09-06 21:13] VITALS: BP 160/88; RESP 18
[2017-09-06 23:00] VITALS: BP 138/84; PULSE 89
[2017-09-07 02:47] VITALS: BP 167/77; RESP 18
[2017-09-07] MEDS: hydrALAzine 20 MG INJ IV PRN (03:12)
[2017-09-07 04:11] VITALS: BP 118/59
[2017-09-07] MEDS: HYDROCODONE/APAP (5/325) TAB PO PRN (05:22)
[2017-09-07] MEDS: LEVOTHYROXINE 75 MCG TAB PO SCH (05:22)
[2017-09-07 07:22] VITALS: BP 137/68; RESP 17
[2017-09-07] MEDS: FAMOTIDINE 20 MG TAB PO SCH (09:00)
[2017-09-07] MEDS: ASPIRIN 81 MG TAB PO SCH (09:00)
[2017-09-07] MEDS: FERROUS SULFATE (EC) 325 MG TAB PO SCH (09:00)
[2017-09-07] MEDS: HYDROCORTISONE 1% 28.35 GM OINT TOP SCH ×2 (09:04→20:44)
[2017-09-07] MEDS: ENOXAPARIN 40 MG/0.4 ML SYG SC SCH (09:09)
--- NOTE | 2017-09-07 09:46 | PN ---
Date/Time of Note Date/Time of Note DATE: 09/07/17 TIME: 09:41 Assessment/Plan VTE Prophylaxis VTE Prophylaxis Intervention: SCD's Lines/Catheters IV [facility] Saline Lock Urinary Cath still in place: No Assessment/Plan Chief Complaint/Hosp Course Assessment and plan 1. Left knee swelling secondary to recent fall. Patient with left knee x-ray negative for any fracture. It did show however some moderate joint effusion and osteopenia. MRI was offered however patient at this time still refusing. Continue physical therapy/Occupational Therapy. 2. Unsteady gait. Physical therapy follow. Continue fall precautions. 3. Anemia. Noted to be iron deficient. Continue iron supplement. 4. Hypothyroidism. continue synthroid 5. Mild malnutrition. encourage oral intake. dietitian was consulted 6. suspect hx Dementia. Continue fall precautions. Continue with reorientation. 7. History of psoriasis. Continue had a cortisone complex. Disposition and plan: Continue with physical therapy/Occupational Therapy. plan for placement. will follow up case technician Discussed plan of care with Dr. Sheldon Problems: Subjective 24 Hr Interval Summary Free Text/Dictation no reports of left knee pain at this time Exam/Review of Systems Vital Signs Vitals Vital Signs Date Time Temp Pulse Resp B/P Pulse Ox O2 Delivery O2 Flow Rate FiO2 09/07/17 07:22 97.9 85 17 137/68 97 09/04/17 09:26 Room Air Intake and Output 09/06/17 09/06/17 09/07/17 15:00 23:00 07:00 Intake Total 500 ml 220 ml Balance 500 ml 220 ml Exam Constitutional: alert (Forgetful) unchanged Head: normocephalic Eyes: nl conjunctiva Neck: supple Respiratory: clear to auscultation Cardiovascular: other (Regular rate) Gastrointestinal: non-tender, soft Musculoskeletal: swelling (Left knee. Pain on palpation) Neurological: nl speech (Alert to self and place) Skin: nl turgor Results Result Diagram: 09/06/17 1005 09/06/17 1004 Results 24 hrs Laboratory Tests Test 09/06/17 10:04 09/06/17 10:05 Sodium Level 143 Potassium Level 3.8 Chloride Level 106 Carbon Dioxide Level 28 Anion Gap 13 Blood Urea Nitrogen 19 Creatinine 0.69 Glucose Level 89 Calcium Level 9.3 White Blood Count 6.6 Red Blood Count 3.02 L Hemoglobin 10.6 L Hematocrit 31.5 L Mean Corpuscular Volume 104.3 H Mean Corpuscular Hemoglobin 35.1 H Mean Corpuscular Hemoglobin Concent 33.7 Red Cell Distribution Width 13.2 Platelet Count 267 Mean Platelet Volume 9.6 Neutrophils % 66.8 Lymphocytes % 19.6 Monocytes % 8.3 Eosinophils % 3.9 Basophils % 0.9 Nucleated Red Blood Cells % 0.0 Neutrophils # 4.4 Lymphocytes # 1.3 Monocytes # 0.6 Eosinophils # 0.3 Basophils # 0.1 Nucleated Red Blood Cells # 0.0 Medications Medications Current Medications Ondansetron HCl (Zofran Inj) 4 mg Q6H PRN IV NAUSEA AND/OR VOMITING; Start 09/04/17 at 09:30 Acetaminophen (Tylenol Tab) 650 mg Q6H PRN PO PAIN LEVEL 1-3 OR FEVER; Start 09/04/17 at 09:30 Acetaminophen/ Hydrocodone Bitart ([place] (5/325)) 1 tab Q6H PRN PO MODERATE PAIN LEVEL 4-6 Last administered on 09/07/17 05:22; Admin Dose 1 TAB; Start at 09:30 Docusate Sodium (Colace) 100 mg Q12H PRN PO CONSTIPATION; Start 09/04/17 at 09: 30 Magnesium Hydroxide (Milk Of Mag) 30 ml DAILY PRN PO CONSTIPATION; Start at 09:30 Famotidine (Pepcid) 20 mg DAILY PO ; Start 09/04/17 at 10:00 Hydrocortisone (Hydrocortisone 1% Oint) 1 applic BID TOP Last administered on 09/07/17 09:04; Admin Dose 1 APPLIC; Start 09/04/17 at 11:00 Aspirin (Aspirin) 81 mg DAILY PO ; Start 09/05/17 at 09:00 Enoxaparin Sodium (Lovenox) 40 mg DAILY SC Last administered on 09/07/17 09:09 ; Admin Dose 40 MG; Start 09/05/17 at 09:00 Ferrous Sulfate (Ferrous Sulfate (Ec)) 325 mg DAILY PO Last administered on 08:50; Admin Dose 325 MG; Start 09/05/17 at 09:00 Levothyroxine Sodium (Synthroid) 75 mcg DAILY@06 PO Last administered on 05:22; Admin Dose 75 MCG; Start 09/05/17 at 09:30 Hydralazine HCl (Apresoline) 10 mg Q4H PRN IV sbp>160 Last administered on 09/07 03:12; Admin Dose 10 MG; Start 09/05/17 at 09:30 KEERTHI MÉNDEZ Sep 07, 2017 09:46
[2017-09-07 10:01] LABS: CALCIUM 9.6 mg/dl (8.4-10.2); CREATININE 0.64 mg/dl (0.44-1.00); POTASSIUM 3.5 mmol/L (3.5-5.1)
[2017-09-07] MEDS: AMLODIPINE 5 MG TAB PO SCH ×2 (10:11→20:44)
--- NOTE | 2017-09-07 15:39 | RADRPT ---
PROCEDURE: MRI OF THE LEFT KNEE CLINICAL INDICATION: Worsening left knee pain, fall 1 year ago TECHNIQUE: MRI images of the left knee were obtained utilizing in multiple planes using multiple p ulse sequences. Images were interpreted on a high-resolution PACS system. COMPARISON: Radiographs of the left knee dated September 03, 2017 FINDINGS: Medial compartment: There is no evidence for meniscal degeneration or tear. There is mild to modera te chondral loss and fissuring at the weightbearing medial femorotibial compartment. The medial supp orting structures are slightly bowed but intact.. Lateral compartment: There is extensive degenerative tearing and maceration of the entire lateral me niscus with diffuse full-thickness chondral loss throughout the majority of the lateral femorotibial compartment (sagittal 7 and coronal 20). There is chronic bone remodelling of the lateral femoral c ondyle and lateral tibial plateau. The lateral supporting structures are intact. Mild stress respons e in the medial and lateral tibial plateaus as noted. Intercondylar notch: The anterior and posterior cruciate ligaments are intact. Patellofemoral joint: There is moderate grade chondral loss at the central trochlea with chondral th inning over the patella. The quadriceps and the patellar tendons are intact. Other findings: There is a moderate to large knee joint effusion with synovitis and synovial prolife ration. There is no acute fracture. IMPRESSION: 1. Tricompartmental osteoarthrosis, severe and predominant in the lateral femorotibial compartment. 2. Circumferential degenerative tearing and maceration of the lateral meniscus. 3. Moderate to large knee joint effusion with prominent synovitis. 4. No acute fracture or acute ligamentous abnormality. RPTAT: UU .Enio Bynum MD, Date Time Electronically viewed and signed by .Enio Bynum MD, on 09/07/2017 15:38 .K/
[2017-09-07 17:42] VITALS: BP 116/74; PULSE 120; RESP 18
[2017-09-07 20:29] VITALS: BP 153/74; RESP 20
[2017-09-08] MEDS: LEVOTHYROXINE 75 MCG TAB PO SCH (05:46)
[2017-09-08] MEDS: ASPIRIN 81 MG TAB PO SCH (09:00)
[2017-09-08] MEDS: AMLODIPINE 5 MG TAB PO SCH ×2 (09:00→21:00)
[2017-09-08] MEDS: FAMOTIDINE 20 MG TAB PO SCH (09:00)
[2017-09-08] MEDS: FERROUS SULFATE (EC) 325 MG TAB PO SCH (09:00)
[2017-09-08] MEDS: ENOXAPARIN 40 MG/0.4 ML SYG SC SCH (09:23)
[2017-09-08] MEDS: HYDROCORTISONE 1% 28.35 GM OINT TOP SCH ×2 (09:25→21:00)
--- NOTE | 2017-09-08 09:40 | PN ---
Date/Time of Note Date/Time of Note DATE: 09/08/17 TIME: 09:38 Assessment/Plan VTE Prophylaxis VTE Prophylaxis Intervention: LMWH Lines/Catheters IV Catheter Type (from [facility]): Saline Lock Urinary Cath still in place: No Assessment/Plan Chief Complaint/Hosp Course Assessment and plan 1. Left knee swelling secondary to recent fall. Patient with left knee x-ray negative for any fracture. It did show however some moderate joint effusion and osteopenia. MRI of left knee done 09/07/17 showed: -Tricompartmental osteoarthrosis, severe and predominant in the lateral femorotibial compartment. -Circumferential degenerative tearing and maceration of the lateral meniscus. - Moderate to large knee joint effusion with prominent synovitis. - No acute fracture or acute ligamentous abnormality. PT/OT is following. Orthopedic surgeon to follow. 2. Unsteady gait. Physical therapy follow. Continue fall precautions. 3. Anemia. Noted to be iron deficient. Continue iron supplement. 4. Hypothyroidism. continue synthroid 5. Mild malnutrition. encourage oral intake. dietitian was consulted 6. suspect hx Dementia. Continue fall precautions. Continue with reorientation. 7. History of psoriasis. Continue had a cortisone complex. Disposition and plan: Continue with analgesics. Physical therapy following. Orthopedic surgeon to follow Discussed plan of care with Dr. Sheldon Problems: Subjective 24 Hr Interval Summary Free Text/Dictation Still reportedly has some left knee pain. Difficulty with ambulation. Exam/Review of Systems Vital Signs Vitals Vital Signs Date Time Temp Pulse Resp B/P Pulse Ox O2 Delivery O2 Flow Rate FiO2 09/07/17 20:29 97.9 80 20 153/74 95 09/04/17 09:26 Room Air Intake and Output 09/07/17 09/07/17 09/08/17 15:00 23:00 07:00 Intake Total 400 ml 400 ml Balance 400 ml 400 ml Exam Constitutional: alert, no s/s of distress Head: normocephalic Eyes: nl conjunctiva Neck: supple Respiratory: clear to auscultation Cardiovascular: other (Regular rate) Gastrointestinal: non-tender, soft Musculoskeletal: swelling (Left knee. Pain on palpation) unchanged Neurological: nl speech (Alert to self and place) Skin: nl turgor Results Result Diagram: 09/06/17 1005 09/07/17 0918 Medications Medications Current Medications Ondansetron HCl (Zofran Inj) 4 mg Q6H PRN IV NAUSEA AND/OR VOMITING; Start 09/04/17 at 09:30 Acetaminophen (Tylenol Tab) 650 mg Q6H PRN PO PAIN LEVEL 1-3 OR FEVER; Start 09/04/17 at 09:30 Acetaminophen/ Hydrocodone Bitart ([place] (5/325)) 1 tab Q6H PRN PO MODERATE PAIN LEVEL 4-6 Last administered on 09/07/17 05:22; Admin Dose 1 TAB; Start at 09:30 Docusate Sodium (Colace) 100 mg Q12H PRN PO CONSTIPATION Last administered on 09/07/17 17:05; Admin Dose 100 MG; Start 09/04/17 at 09:30 Magnesium Hydroxide (Milk Of Mag) 30 ml DAILY PRN PO CONSTIPATION; Start at 09:30 Famotidine (Pepcid) 20 mg DAILY PO ; Start 09/04/17 at 10:00 Hydrocortisone (Hydrocortisone 1% Oint) 1 applic BID TOP Last administered on 09/08/17 09:25; Admin Dose 1 APPLIC; Start 09/04/17 at 11:00 Aspirin (Aspirin) 81 mg DAILY PO ; Start 09/05/17 at 09:00 Enoxaparin Sodium (Lovenox) 40 mg DAILY SC Last administered on 09/08/17 09:23 ; Admin Dose 40 MG; Start 09/05/17 at 09:00 Ferrous Sulfate (Ferrous Sulfate (Ec)) 325 mg DAILY PO Last administered on 08:50; Admin Dose 325 MG; Start 09/05/17 at 09:00 Levothyroxine Sodium (Synthroid) 75 mcg DAILY@06 PO Last administered on 05:46; Admin Dose 75 MCG; Start 09/05/17 at 09:30 Hydralazine HCl (Apresoline) 10 mg Q4H PRN IV sbp>160 Last administered on 09/07 03:12; Admin Dose 10 MG; Start 09/05/17 at 09:30 Amlodipine Besylate (Norvasc) 5 mg BID PO Last administered on 09/07/17 20:44 ; Admin Dose 5 MG; Start 09/07/17 at 10:00 KEERTHI MÉNDEZ Sep 08, 2017 09:40
[2017-09-09] MEDS: LEVOTHYROXINE 75 MCG TAB PO SCH (06:00)
[2017-09-09 07:16] LABS: CALCIUM 9.5 mg/dl (8.4-10.2); CREATININE 0.63 mg/dl (0.44-1.00); POTASSIUM 3.4 mmol/L (3.5-5.1)
[2017-09-09] MEDS: FAMOTIDINE 20 MG TAB PO SCH (09:00)
[2017-09-09] MEDS: ASPIRIN 81 MG TAB PO SCH (09:00)
[2017-09-09] MEDS: AMLODIPINE 5 MG TAB PO SCH ×2 (09:00→22:38)
[2017-09-09] MEDS: FERROUS SULFATE (EC) 325 MG TAB PO SCH (09:00)
[2017-09-09] MEDS: HYDROCORTISONE 1% 28.35 GM OINT TOP SCH ×2 (09:57→21:00)
[2017-09-09] MEDS: ENOXAPARIN 40 MG/0.4 ML SYG SC SCH (09:58)
--- NOTE | 2017-09-09 14:32 | PN ---
Date/Time of Note Date/Time of Note DATE: 09/09/17 TIME: 14:30 Assessment/Plan VTE Prophylaxis VTE Prophylaxis Intervention: SCD's Lines/Catheters IV Catheter Type (from Nrsg): Saline Lock Urinary Cath still in place: No Assessment/Plan Chief Complaint/Hosp Course Subjective: Events noted. Pain stable. No dyspnea. Objective: Vital signs stable Physical exam No pallor droop Regular Clear Benign No edema Neuro: Nonfocal Assessment and plan 1. Left lateral meniscal tear; osteoarthritic. Stable treat pain. Appreciate/ pending Ortho consult. May need PT and snf/DME. 2. Mechanical fall 3. Dementia? 4. Hypothyroidism 5. Anemia 6. Problems: Exam/Review of Systems Vital Signs Vitals Vital Signs Date Time Temp Pulse Resp B/P Pulse Ox O2 Delivery O2 Flow Rate FiO2 09/07/17 20:29 97.9 80 20 153/74 95 Intake and Output 09/08/17 09/08/17 09/09/17 15:00 23:00 07:00 Intake Total 360 ml 360 ml Balance 360 ml 360 ml Results Result Diagram: 09/06/17 1005 09/09/17 0547 Results 24 hrs Laboratory Tests Test 09/09/17 05:47 Sodium Level 142 Potassium Level 3.4 L Chloride Level 103 Carbon Dioxide Level 30 Anion Gap 12 Blood Urea Nitrogen 15 Creatinine 0.63 Glucose Level 99 Calcium Level 9.5 Medications Medications Current Medications Ondansetron HCl (Zofran Inj) 4 mg Q6H PRN IV NAUSEA AND/OR VOMITING; Start 09/04/17 at 09:30 Acetaminophen (Tylenol Tab) 650 mg Q6H PRN PO PAIN LEVEL 1-3 OR FEVER; Start 09/04/17 at 09:30 Acetaminophen/ Hydrocodone Bitart ([place] (5/325)) 1 tab Q6H PRN PO MODERATE PAIN LEVEL 4-6 Last administered on 09/07/17 05:22; Admin Dose 1 TAB; Start at 09:30 Docusate Sodium (Colace) 100 mg Q12H PRN PO CONSTIPATION Last administered on 09/07/17 17:05; Admin Dose 100 MG; Start 09/04/17 at 09:30 Magnesium Hydroxide (Milk Of Mag) 30 ml DAILY PRN PO CONSTIPATION; Start at 09:30 Famotidine (Pepcid) 20 mg DAILY PO ; Start 09/04/17 at 10:00 Hydrocortisone (Hydrocortisone 1% Oint) 1 applic BID TOP Last administered on 09/09/17 09:57; Admin Dose 1 APPLIC; Start 09/04/17 at 11:00 Aspirin (Aspirin) 81 mg DAILY PO ; Start 09/05/17 at 09:00 Enoxaparin Sodium (Lovenox) 40 mg DAILY SC Last administered on 09/09/17 09: 58; Admin Dose 40 MG; Start 09/05/17 at 09:00 Ferrous Sulfate (Ferrous Sulfate (Ec)) 325 mg DAILY PO Last administered on 08:50; Admin Dose 325 MG; Start 09/05/17 at 09:00 Levothyroxine Sodium (Synthroid) 75 mcg DAILY@06 PO Last administered on 05:46; Admin Dose 75 MCG; Start 09/05/17 at 09:30 Hydralazine HCl (Apresoline) 10 mg Q4H PRN IV sbp>160 Last administered on 09/07 03:12; Admin Dose 10 MG; Start 09/05/17 at 09:30 Amlodipine Besylate (Norvasc) 5 mg BID PO Last administered on 09/07/17 20:44 ; Admin Dose 5 MG; Start 09/07/17 at 10:00 ALLEY FELDMAN MD Sep 09, 2017 14:32
[2017-09-09] MEDS: HYDROCODONE/APAP (5/325) TAB PO PRN (16:04)
[2017-09-09] MEDS: DOCUSATE SODIUM 100 MG CAP PO SCH (21:00)
[2017-09-09 22:46] VITALS: BP 197/96; RESP 20
[2017-09-09] MEDS ORDERED: hydrALAzine 20 MG INJ IV PRN (23:00)
[2017-09-10] MEDS: LEVOTHYROXINE 75 MCG TAB PO SCH (05:49)
[2017-09-10 08:00] VITALS: BP 168/81; RESP 18
[2017-09-10 08:41] LABS: BASOPHIL # 0.1 10^3/ul (0.0-0.1); BASOPHILS % 0.8 % (0.0-2.0); EOSINOPHILS # 0.2 10^3/ul (0.0-0.5); EOSINOPHILS % 2.6 % (0.0-7.0); HEMATOCRIT 33.2 % (37.0-47.0); HEMOGLOBIN 11.3 g/dl (12.0-16.0); LYMPHOCYTES # 1.4 10^3/ul (0.8-2.9); MEAN CORPUSCULAR HEMOGLOBIN 34.6 pg (29.0-33.0); MEAN CORPUSCULAR VOLUME 101.5 fl (82.0-101.0); MEAN PLATELET VOLUME 9.7 fl (7.4-10.4); MONOCYTE # 0.7 10^3/ul (0.3-0.9); MONOCYTES % 9.5 % (0.0-11.0); NEUTROPHIL # 5.3 10^3/ul (1.6-7.5); NEUTROPHILS % 68.7 % (39.0-77.0); PLATELET COUNT 287 10^3/UL (140-415); RED BLOOD COUNT 3.27 10^6/ul (4.20-5.40); WHITE BLOOD COUNT 7.7 10^3/ul (4.8-10.8)
[2017-09-10 08:58] LABS: ALBUMIN 3.3 g/dl (3.3-4.9); ALBUMIN/GLOBULIN RATIO 0.82; BILIRUBIN,INDIRECT 0.4 mg/dl (0-1.1); BILIRUBIN,TOTAL 0.4 mg/dl (0.2-1.3); CALCIUM 9.2 mg/dl (8.4-10.2); CREATININE 0.62 mg/dl (0.44-1.00); MAGNESIUM 1.8 mg/dl (1.7-2.5); PHOSPHORUS 3.5 mg/dl (2.5-4.9); POTASSIUM 3.3 mmol/L (3.5-5.1); TOTAL PROTEIN 7.3 g/dl (6.1-8.1)
[2017-09-10] MEDS: HYDROCORTISONE 1% 28.35 GM OINT TOP SCH ×2 (09:00→21:00)
[2017-09-10] MEDS: AMLODIPINE 5 MG TAB PO SCH ×2 (09:13→20:23)
[2017-09-10] MEDS: FAMOTIDINE 20 MG TAB PO SCH (09:15)
[2017-09-10] MEDS: ASPIRIN 81 MG TAB PO SCH (09:15)
[2017-09-10] MEDS: FERROUS SULFATE (EC) 325 MG TAB PO SCH (09:15)
[2017-09-10] MEDS: ENOXAPARIN 40 MG/0.4 ML SYG SC SCH (09:22)
[2017-09-10] MEDS ORDERED: POTASSIUM CHLORIDE (SR) 10 MEQ TAB PO ONE (10:00)
--- NOTE | 2017-09-10 10:51 | PN ---
Date/Time of Note Date/Time of Note DATE: 09/10/17 TIME: 10:50 Assessment/Plan VTE Prophylaxis VTE Prophylaxis Intervention: LMWH Lines/Catheters IV Catheter Type (from [facility]): Saline Lock Urinary Cath still in place: No Assessment/Plan Chief Complaint/Hosp Course 1. Left knee pain and swelling. Left knee MRI showing tricompartmental osteoarthrosis, severe and predominantly in the lateral femorotibial compartment with circumferential degenerative tearing and maceration of the lateral meniscus with moderate to large knee joint effusion with prominent synovitis. Continue pain control. Pending orthopedic surgery evaluation. 2. Iron deficiency anemia. Continue iron supplements. 3. Essential hypertension. Continue antihypertensives. 4. Hypothyroidism. Continue Synthroid. 5. Dementia. Continue frequent reorientation. 6. Psoriasis. Continue topical cortisone cream. 7. Fluids, electrolytes, and nutrition. Regular diet. 8. DVT prophylaxis. Subcutaneous Lovenox. 9. Plan. Continue pain control. Replete potassium. Await orthopedic surgery evaluation and recommendations. Case discussed with Dr. Sheldon. Problems: Subjective 24 Hr Interval Summary Free Text/Dictation Patient remains afebrile. Exam/Review of Systems Vital Signs Vitals Vital Signs Date Time Temp Pulse Resp B/P Pulse Ox O2 Delivery O2 Flow Rate FiO2 09/10/17 08:00 97.7 78 18 168/81 98 Intake and Output 09/09/17 09/09/17 09/10/17 14:59 22:59 06:59 Intake Total 460 ml 120 ml Balance 460 ml 120 ml Exam General: Adequately build 82 year-old female lying in bed in no apparent distress. HEENT: Normocephalic, atraumatic. Eyes: Anicteric sclerae, conjunctivae clear. ENT: Nasal septum midline, oral mucosa moist. Neck supple, no JVD noticed. Respiratory: Bilaterally clear breath sounds. No use of accessory muscles of respiration. No adventitious breath sounds. Cardiovascular: S1, S2 heard. Regular rate and rhythm. Abdomen: Soft, nontender, and nondistended. Bowel sounds positive in all 4 quadrants. Genitourinary: Deferred. Extremities: No cyanosis, no clubbing, no edema. Left knee swelling with tenderness to touch. Neurologic: Somnolent. Results Result Diagram: 09/10/17 0703 09/10/17 0703 Results 24 hrs Laboratory Tests Test 09/10/17 07:03 White Blood Count 7.7 Red Blood Count 3.27 L Hemoglobin 11.3 L Hematocrit 33.2 L Mean Corpuscular Volume 101.5 H Mean Corpuscular Hemoglobin 34.6 H Mean Corpuscular Hemoglobin Concent 34.0 Red Cell Distribution Width 13.0 Platelet Count 287 Mean Platelet Volume 9.7 Neutrophils % 68.7 Lymphocytes % 18.0 Monocytes % 9.5 Eosinophils % 2.6 Basophils % 0.8 Nucleated Red Blood Cells % 0.0 Neutrophils # 5.3 Lymphocytes # 1.4 Monocytes # 0.7 Eosinophils # 0.2 Basophils # 0.1 Nucleated Red Blood Cells # 0.0 Sodium Level 142 Potassium Level 3.3 L Chloride Level 104 Carbon Dioxide Level 30 Anion Gap 11 Blood Urea Nitrogen 16 Creatinine 0.62 Glucose Level 98 Calcium Level 9.2 Phosphorus Level 3.5 Magnesium Level 1.8 Total Bilirubin 0.4 Direct Bilirubin 0.00 Indirect Bilirubin 0.4 Aspartate Amino Transf (AST/SGOT) 21 Alanine Aminotransferase (ALT/SGPT) 25 Alkaline Phosphatase 97 Total Protein 7.3 Albumin 3.3 Globulin 4.00 H Albumin/Globulin Ratio 0.82 Medications Medications Current Medications Ondansetron HCl (Zofran Inj) 4 mg Q6H PRN IV NAUSEA AND/OR VOMITING; Start 09/04/17 at 09:30 Acetaminophen (Tylenol Tab) 650 mg Q6H PRN PO PAIN LEVEL 1-3 OR FEVER; Start 09/04/17 at 09:30 Acetaminophen/ Hydrocodone Bitart ([place] (5/325)) 1 tab Q6H PRN PO MODERATE PAIN LEVEL 4-6 Last administered on 09/09/17 16:04; Admin Dose 1 TAB; Start 09/04/17 at 09:30 Magnesium Hydroxide (Milk Of Mag) 30 ml DAILY PRN PO CONSTIPATION; Start at 09:30 Famotidine (Pepcid) 20 mg DAILY PO Last administered on 09/10/17 09:15; Admin Dose 20 MG; Start 09/04/17 at 10:00 Hydrocortisone (Hydrocortisone 1% Oint) 1 applic BID TOP Last administered on 09/09/17 09:57; Admin Dose 1 APPLIC; Start 09/04/17 at 11:00 Aspirin (Aspirin) 81 mg DAILY PO Last administered on 09/10/17 09:15; Admin Dose 81 MG; Start 09/05/17 at 09:00 Enoxaparin Sodium (Lovenox) 40 mg DAILY SC Last administered on 09/10/17 09: 22; Admin Dose 40 MG; Start 09/05/17 at 09:00 Ferrous Sulfate (Ferrous Sulfate (Ec)) 325 mg DAILY PO Last administered on 09:15; Admin Dose 325 MG; Start 09/05/17 at 09:00 Levothyroxine Sodium (Synthroid) 75 mcg DAILY@06 PO Last administered on 05:46; Admin Dose 75 MCG; Start 09/05/17 at 09:30 Hydralazine HCl (Apresoline) 10 mg Q4H PRN IV sbp>160 Last administered on 09/07 03:12; Admin Dose 10 MG; Start 09/05/17 at 09:30 Amlodipine Besylate (Norvasc) 5 mg BID PO Last administered on 09/10/17 09:13 ; Admin Dose 5 MG; Start 09/07/17 at 10:00 Docusate Sodium (Colace) 200 mg HS PO ; Start 09/09/17 at 21:00 Hydralazine HCl (Apresoline) 10 mg Q4H PRN IV ELEVATED SYSTOLIC BP; Start 08/16 at 23:00 RICHI BRUNSON NP Sep 10, 2017 10:51 RICHI BRUNSON NP Sep 10, 2017 10:51
[2017-09-10] MEDS: LISINOPRIL 5 MG TAB PO SCH (12:13)
--- NOTE | 2017-09-10 12:45 | CONS ---
DATE OF ADMISSION: 09/07/2017 DATE OF CONSULTATION: 09/10/2017 ORTHOPEDIC CONSULTATION CHIEF COMPLAINT: Fall. HISTORY OF PRESENT ILLNESS: This is an 82-year-old female who sustained a mechanical fall. The pat ient denies any pain. Consult was called for left knee effusion. Despite repeated questions, heladio howe stated that she does not have any pain. She denies any chest pain or shortness of breath. PAST MEDICAL HISTORY: Hypothyroidism. MEDICATIONS: None. PAST SURGICAL HISTORY: Partial colectomy. SOCIAL HISTORY: Denies tobacco, alcohol or drug use. FAMILY HISTORY: Noncontributory. ALLERGIES: NO KNOWN DRUG ALLERGIES. PHYSICAL EXAMINATION: VITAL SIGNS: 98.3, 197/96, 86 pulse, 20 respiratory rate. GENERAL: The patient is resting comfortably. She is alert and oriented x1. EXTREMITIES: Left knee: No open wounds are noted. There is an effusion. She is nontender through out the left knee, 0-120 degrees range of motion, stable to varus and valgus stress. Positive Mc[place] ray's, negative anterior drawer, negative posterior drawer. Neurovascularly intact. IMAGING: X-rays, left knee. No fractures are noted. There are degenerative changes of the left kn ee. MRI of the left knee: There is tricompartmental osteoarthritis. There is a degenerative tear of the lateral meniscus. No acute fractures. IMPRESSION: An 82-year-old female with a mechanical fall and left knee pain. PLAN: The patient does not require any operative intervention during this hospital stay. She can f ollow up on an outpatient basis in my office. Dictated By: ANTONIETA ROBERTS/MULUGETA Conf#: [id number] DID#: [id number] CC: DHARA AGUILAR MD;*EndCC*
[2017-09-10 13:10] VITALS: BP 140/74
[2017-09-10 14:00] VITALS: BP 140/74; RESP 18
[2017-09-10] MEDS: DOCUSATE SODIUM 100 MG CAP PO SCH (20:23)
[2017-09-10 20:28] VITALS: BP 149/86; PULSE 86; RESP 18
[2017-09-11 03:09] VITALS: BP 151/77; PULSE 88; RESP 17
[2017-09-11] MEDS: LEVOTHYROXINE 75 MCG TAB PO SCH (06:33)
[2017-09-11 07:34] VITALS: BP 133/61; RESP 17
[2017-09-11] MEDS: ASPIRIN 81 MG TAB PO SCH (09:00)
[2017-09-11] MEDS: LISINOPRIL 5 MG TAB PO SCH (09:00)
[2017-09-11] MEDS: FAMOTIDINE 20 MG TAB PO SCH (09:00)
[2017-09-11] MEDS: HYDROCORTISONE 1% 28.35 GM OINT TOP SCH ×4 (09:00→21:00)
[2017-09-11] MEDS: FERROUS SULFATE (EC) 325 MG TAB PO SCH (09:00)
[2017-09-11] MEDS ORDERED: ALPRAZOLAM 0.25 MG TAB PO PRN (09:00)
[2017-09-11] MEDS: ENOXAPARIN 40 MG/0.4 ML SYG SC SCH (09:00)
[2017-09-11] MEDS: AMLODIPINE 5 MG TAB PO SCH ×2 (09:00→20:36)
--- NOTE | 2017-09-11 12:33 | PN ---
Date/Time of Note Date/Time of Note DATE: 09/11/17 TIME: 12:31 Assessment/Plan VTE Prophylaxis VTE Prophylaxis Intervention: SCD's Lines/Catheters IV Catheter Type (from Nrs): no iv access Urinary Cath still in place: No Assessment/Plan Chief Complaint/Hosp Course Assessment and plan 1. Left knee swelling secondary to recent fall. Patient with left knee x-ray negative for any fracture. It did show however some moderate joint effusion and osteopenia. MRI of left knee done 09/07/17 showed: -Tricompartmental osteoarthrosis, severe and predominant in the lateral femorotibial compartment. -Circumferential degenerative tearing and maceration of the lateral meniscus. - Moderate to large knee joint effusion with prominent synovitis. - No acute fracture or acute ligamentous abnormality. PT/OT is following. Orthopedic surgeon following. No plan for intervention at this time. Is poor to fair. Continue with analgesics. 2. Unsteady gait. Physical therapy following. Continue fall precautions. 3. Anemia. Noted to be iron deficient. Continue iron supplement. 4. Hypothyroidism. continue synthroid 5. Mild malnutrition. encourage oral intake. dietitian was consulted 6. suspect hx Dementia. Continue fall precautions. Continue with reorientation. 7. History of psoriasis. Continue had a cortisone complex. Disposition and plan: Continue with analgesics. Continue with physical therapy. Tentative plan for placement. Will follow up with case management Discussed plan of care with Dr. Sheldon Problems: Subjective 24 Hr Interval Summary Free Text/Dictation Alert. Confused but with underlying dementia. No signs or symptoms of pain at this time Exam/Review of Systems Vital Signs Vitals Vital Signs Date Time Temp Pulse Resp B/P Pulse Ox O2 Delivery O2 Flow Rate FiO2 09/11/17 07:34 98.4 86 17 133/61 97 09/11/17 03:09 Room Air Intake and Output 09/10/17 09/10/17 09/11/17 15:00 23:00 07:00 Intake Total 420 ml 120 ml Balance 420 ml 120 ml Exam Constitutional: alert, no s/s of distress, confused with underlying dementia Head: normocephalic Eyes: nl conjunctiva Neck: supple Respiratory: clear to auscultation Cardiovascular: other (Regular rate) Gastrointestinal: non-tender, soft Musculoskeletal: swelling (Left knee. Less Neurological: nl speech (Alert to self and place) Skin: nl turgor Results Result Diagram: 09/10/1703 09/10/17 0703 Medications Medications Current Medications Ondansetron HCl (Zofran Inj) 4 mg Q6H PRN IV NAUSEA AND/OR VOMITING; Start 09/04/17 at 09:30 Acetaminophen (Tylenol Tab) 650 mg Q6H PRN PO PAIN LEVEL 1-3 OR FEVER; Start 09/04/17 at 09:30 Acetaminophen/ Hydrocodone Bitart ([place] (5/325)) 1 tab Q6H PRN PO MODERATE PAIN LEVEL 4-6 Last administered on 09/09/17 16:04; Admin Dose 1 TAB; Start 09/04/17 at 09:30 Magnesium Hydroxide (Milk Of Mag) 30 ml DAILY PRN PO CONSTIPATION; Start at 09:30 Famotidine (Pepcid) 20 mg DAILY PO Last administered on 09/10/17 09:15; Admin Dose 20 MG; Start 09/04/17 at 10:00 Hydrocortisone (Hydrocortisone 1% Oint) 1 applic BID TOP Last administered on 09/11/17 11:01; Admin Dose 1 APPLIC; Start 09/04/17 at 11:00 Aspirin (Aspirin) 81 mg DAILY PO Last administered on 09/10/17 09:15; Admin Dose 81 MG; Start 09/05/17 at 09:00 Enoxaparin Sodium (Lovenox) 40 mg DAILY SC Last administered on 09/10/17 09: 22; Admin Dose 40 MG; Start 09/05/17 at 09:00 Ferrous Sulfate (Ferrous Sulfate (Ec)) 325 mg DAILY PO Last administered on 09:15; Admin Dose 325 MG; Start 09/05/17 at 09:00 Levothyroxine Sodium (Synthroid) 75 mcg DAILY@06 PO Last administered on 06:33; Admin Dose 75 MCG; Start 09/05/17 at 09:30 Hydralazine HCl (Apresoline) 10 mg Q4H PRN IV sbp>160 Last administered on 09/07 03:12; Admin Dose 10 MG; Start 09/05/17 at 09:30 Amlodipine Besylate (Norvasc) 5 mg BID PO Last administered on 09/10/17 20:23 ; Admin Dose 5 MG; Start 09/07/17 at 10:00 Docusate Sodium (Colace) 200 mg HS PO Last administered on 09/10/17 20:23; Admin Dose 200 MG; Start 09/09/17 at 21:00 Hydralazine HCl (Apresoline) 10 mg Q4H PRN IV ELEVATED SYSTOLIC BP; Start 08/16 at 23:00 Lisinopril (Zestril) 5 mg DAILY PO Last administered on 09/10/17 12:13; Admin Dose 5 MG; Start 09/10/17 at 11:30 Alprazolam (Xanax) 0.25 mg Q8H PRN PO ANXIETY; Start 09/11/17 at 09:00 KEERTHI MÉNDEZ Sep 11, 2017 12:33
[2017-09-11 13:46] VITALS: BP 125/60; RESP 18
[2017-09-11 14:27] LABS: BASOPHIL # 0.1 10^3/ul (0.0-0.1); BASOPHILS % 0.7 % (0.0-2.0); EOSINOPHILS # 0.1 10^3/ul (0.0-0.5); EOSINOPHILS % 0.9 % (0.0-7.0); HEMOGLOBIN 10.7 g/dl (12.0-16.0); LYMPHOCYTES # 1.7 10^3/ul (0.8-2.9); LYMPHOCYTES % 17.2 % (15.0-51.0); MEAN CORPUSCULAR HGB CONC 32.4 g/dl (32.0-37.0); MEAN CORPUSCULAR VOLUME 101.9 fl (82.0-101.0); MEAN PLATELET VOLUME 9.9 fl (7.4-10.4); MONOCYTE # 0.9 10^3/ul (0.3-0.9); MONOCYTES % 9.2 % (0.0-11.0); NEUTROPHIL # 6.9 10^3/ul (1.6-7.5); NEUTROPHILS % 71.5 % (39.0-77.0); PLATELET COUNT 297 10^3/UL (140-415); RED BLOOD COUNT 3.24 10^6/ul (4.20-5.40); RED CELL DISTRIBUTION WIDTH 13.4 % (11.5-14.5); WHITE BLOOD COUNT 9.6 10^3/ul (4.8-10.8)
[2017-09-11 14:47] LABS: CHOL/HDL RATIO 4.6 RATIO; MAGNESIUM 1.7 mg/dl (1.7-2.5); PHOSPHORUS 3.3 mg/dl (2.5-4.9)
[2017-09-11 14:49] LABS: CALCIUM 9.5 mg/dl (8.4-10.2); CREATININE 0.75 mg/dl (0.44-1.00); POTASSIUM 3.9 mmol/L (3.5-5.1)
[2017-09-11] MEDS: DOCUSATE SODIUM 100 MG CAP PO SCH (20:36)
[2017-09-11 20:44] VITALS: BP 132/60; RESP 19
[2017-09-12 02:00] VITALS: BP 122/84; RESP 17
[2017-09-12] MEDS: LEVOTHYROXINE 75 MCG TAB PO SCH (06:00)
[2017-09-12 07:47] VITALS: BP 178/74; RESP 16
[2017-09-12] MEDS: FERROUS SULFATE (EC) 325 MG TAB PO SCH (09:00)
[2017-09-12] MEDS: ENOXAPARIN 40 MG/0.4 ML SYG SC SCH (09:00)
[2017-09-12] MEDS: FAMOTIDINE 20 MG TAB PO SCH (09:00)
[2017-09-12] MEDS: HYDROCORTISONE 1% 28.35 GM OINT TOP SCH ×2 (09:00→20:18)
[2017-09-12] MEDS: AMLODIPINE 5 MG TAB PO SCH ×2 (09:01→20:18)
[2017-09-12] MEDS: LISINOPRIL 5 MG TAB PO SCH (09:01)
[2017-09-12] MEDS: ASPIRIN 81 MG TAB PO SCH (09:01)
[2017-09-12] MEDS: HYDROCODONE/APAP (5/325) TAB PO PRN (09:06)
[2017-09-12 13:54] VITALS: BP 145/68; RESP 16
--- NOTE | 2017-09-12 15:37 | PN ---
Date/Time of Note Date/Time of Note DATE: 09/12/17 TIME: 15:32 Assessment/Plan VTE Prophylaxis VTE Prophylaxis Intervention: SCD's Lines/Catheters IV Catheter Type (from Nrsg): no iv access Urinary Cath still in place: No Assessment/Plan Assessment/Plan 1. Left knee effusion, from trauma, pain mangement, PT, no surgical intervention needed 2. Osteoarthritis 3. S/p mechanical fall 4. Hypothyroidism. continue synthroid 5. Mild malnutrition. encourage oral intake. dietitian was consulted 6. suspect hx Dementia. Continue fall precautions. Continue with reorientation. 7. History of psoriasis. Continue had a cortisone complex. 8. Anemia, macrocytic, stable Subjective 24 Hr Interval Summary Free Text/Dictation left knee and leg pain, not out of bed Exam/Review of Systems Vital Signs Vitals Vital Signs Date Time Temp Pulse Resp B/P Pulse Ox O2 Delivery O2 Flow Rate FiO2 09/12/17 13:54 97.8 85 16 145/68 98 09/11/17 03:09 Room Air Intake and Output 09/11/17 09/11/17 09/12/17 15:00 23:00 07:00 Intake Total 250 ml 100 ml Balance 250 ml 100 ml Exam Constitutional: alert, oriented, well developed Psych: nl mood/affect, no complaints Head: atraumatic, normocephalic Eyes: EOMI, PERRL, nl conjunctiva ENMT: nl external ears & nose, nl lips & teeth, nl nasal mucosa & septum Neck: supple Respiratory: clear to auscultation, normal air movement, No congested cough, No crackles/rales, No diminished breath sounds, No intercostal retraction, No labored breathing, No other, No respirations, No tactile fremitus, No wheezing Cardiovascular: nl pulses, regular rate and rhythm, No S3, No S4, No bruits, No diastolic murmur, No edema, No gallop, No irregular rhythm, No jugular venous distention (JVD), No murmurs/extra sounds, No other, No rub, No systolic murmur Gastrointestinal: nl liver, spleen, non-tender, soft, No ascites, No bowel sounds, No distended, No firm, No hepatomegaly, No mass , No other, No rebound or guarding, No splenomegaly, No surgical scars, No tender Extremities: normal pulses, other (left knee swelling, minimally warm, but no redness. [place] lower extremity wound, healing with eschar) Neurological: [employer] II-XII intact, nl mental status, nl speech, nl strength Results Result Diagram: 09/11/17 1418 09/11/17 1418 Medications Medications Current Medications Ondansetron HCl (Zofran Inj) 4 mg Q6H PRN IV NAUSEA AND/OR VOMITING; Start 09/04/17 at 09:30 Acetaminophen (Tylenol Tab) 650 mg Q6H PRN PO PAIN LEVEL 1-3 OR FEVER; Start 09/04/17 at 09:30 Acetaminophen/ Hydrocodone Bitart ([place] (5/325)) 1 tab Q6H PRN PO MODERATE PAIN LEVEL 4-6 Last administered on 09/12/17 09:06; Admin Dose 1 TAB; Start 09/04/17 at 09:30 Magnesium Hydroxide (Milk Of Mag) 30 ml DAILY PRN PO CONSTIPATION; Start at 09:30 Famotidine (Pepcid) 20 mg DAILY PO Last administered on 09/10/17 09:15; Admin Dose 20 MG; Start 09/04/17 at 10:00 Hydrocortisone (Hydrocortisone 1% Oint) 1 applic BID TOP Last administered on 09/11/17 11:01; Admin Dose 1 APPLIC; Start 09/04/17 at 11:00 Aspirin (Aspirin) 81 mg DAILY PO Last administered on 09/12/17 09:01; Admin Dose 81 MG; Start 09/05/17 at 09:00 Enoxaparin Sodium (Lovenox) 40 mg DAILY SC Last administered on 09/10/17 09: 22; Admin Dose 40 MG; Start 09/05/17 at 09:00 Ferrous Sulfate (Ferrous Sulfate (Ec)) 325 mg DAILY PO Last administered on 09:15; Admin Dose 325 MG; Start 09/05/17 at 09:00 Levothyroxine Sodium (Synthroid) 75 mcg DAILY@06 PO Last administered on 06:33; Admin Dose 75 MCG; Start 09/05/17 at 09:30 Hydralazine HCl (Apresoline) 10 mg Q4H PRN IV sbp>160 Last administered on 09/07 03:12; Admin Dose 10 MG; Start 09/05/17 at 09:30 Amlodipine Besylate (Norvasc) 5 mg BID PO Last administered on 09/12/17 09:01 ; Admin Dose 5 MG; Start 09/07/17 at 10:00 Docusate Sodium (Colace) 200 mg HS PO Last administered on 09/11/17 20:36; Admin Dose 200 MG; Start 09/09/17 at 21:00 Hydralazine HCl (Apresoline) 10 mg Q4H PRN IV ELEVATED SYSTOLIC BP; Start 08/16 at 23:00 Lisinopril (Zestril) 5 mg DAILY PO Last administered on 09/12/17 09:01; Admin Dose 5 MG; Start 09/10/17 at 11:30 Alprazolam (Xanax) 0.25 mg Q8H PRN PO ANXIETY; Start 09/11/17 at 09:00 RENE SPRINGER MD Sep 12, 2017 15:37
[2017-09-12] MEDS: DOCUSATE SODIUM 100 MG CAP PO SCH (20:18)
[2017-09-12 20:27] VITALS: BP 139/74; RESP 18
[2017-09-13 02:40] VITALS: BP 155/85; RESP 19
[2017-09-13] MEDS: HYDROCODONE/APAP (5/325) TAB PO PRN (05:56)
[2017-09-13] MEDS: LEVOTHYROXINE 75 MCG TAB PO SCH (05:59)
[2017-09-13 07:58] VITALS: BP 129/58; RESP 18
[2017-09-13] MEDS: LISINOPRIL 5 MG TAB PO SCH (09:00)
[2017-09-13] MEDS: FAMOTIDINE 20 MG TAB PO SCH (09:00)
[2017-09-13] MEDS: HYDROCORTISONE 1% 28.35 GM OINT TOP SCH ×2 (09:00→21:00)
[2017-09-13] MEDS: ENOXAPARIN 40 MG/0.4 ML SYG SC SCH (09:00)
[2017-09-13] MEDS: FERROUS SULFATE (EC) 325 MG TAB PO SCH (09:00)
[2017-09-13] MEDS: AMLODIPINE 5 MG TAB PO SCH ×2 (09:00→21:00)
[2017-09-13] MEDS: ASPIRIN 81 MG TAB PO SCH (09:00)
[2017-09-13 14:12] VITALS: BP 140/65; RESP 18
[2017-09-13] MEDS ORDERED: LISI-313 PO (15:27)
[2017-09-13] MEDS ORDERED: AMLO-145 PO (15:27)
[2017-09-13] MEDS ORDERED: FER325 PO (15:27)
[2017-09-13] MEDS ORDERED: ENOX40DI12 SC (15:27)
[2017-09-13] MEDS ORDERED: HYDR-3498 PO (15:27)
--- NOTE | 2017-09-13 15:33 | DS ---
Date/Time of Note Date/Time of Note DATE: 09/13/17 TIME: 15:28 Discharge Summary Admission/Discharge Info Admit Date/Time Sep 07, 2017 at 13:35 Discharge Date/Time Discharge Diagnosis 1. Left knee effusion, from trauma, pain management and physical therapy 2. Osteoarthritis 3. S/p mechanical fall 4. Hypothyroidism. continue synthroid 5. Mild malnutrition. encourage oral intake. dietitian was consulted 6. suspect hx Dementia. Continue fall precautions. Continue with reorientation. 7. History of psoriasis. Continue had a cortisone complex. 8. Anemia, macrocytic, stable Patient Condition: Stable Hospital Course 82 yo F with PMH hypothyroidism, psoriasis, previous colectomy, no obvious history of dementia, and psoriasis presented to ED for left knee pain after a fall. Patient is a poor historian and states she has been experiencing left knee issues for the past 4 months. States does not remember fall a few days ago but has been falling often secondary to feeling unsteady on her feed. She also has been experiencing weight loss secondary to poor PO intake/appetite. She states she lives alone and grandson will come check on her from time to time. She denies any head trauma, dizziness, nausea, vomiting, headaches, chest pain, shortness of breath, or abdominal issues. She states that her knee has been swollen for months and states it will be okay and refused further imaging when offered MRI to assess for further injury. She would like to be left alone to rest and willing to work with physical therapy tomorrow. Denies any issues with urination, focal deficits, weakness or numbness to extremities. Left knee swelling secondary to recent fall. Patient with left knee x-ray negative for any fracture. MRI of left knee done 09/07/17 showed: - Tricompartmental osteoarthrosis, severe and predominant in the lateral femorotibial compartment. -Circumferential degenerative tearing and maceration of the lateral meniscus. - Moderate to large knee joint effusion with prominent synovitis.- No acute fracture or acute ligamentous abnormality. Orthopedic consultation no surgical intervention needed. Patient is discharged to SNF for physical therapy and pain management. Home Meds Active Scripts Hydrocodone Bit-Acetaminophen (Hydrocodone Bit-APAP) 5-325MG Tablet, 1 TAB PO Q6H Y for MODERATE PAIN LEVEL 4-6 for 10 Days, TAB Prov:RENE SPRINGER MD 09/13/17 Lisinopril* (Lisinopril*) 5 Mg Tablet, 5 MG PO DAILY for 30 Days, TAB Prov:RENE SPRINGER MD 09/13/17 Amlodipine Besylate* (Amlodipine Besylate*) 5 Mg Tablet, 5 MG PO BID for 30 Days , TAB Prov:RENE SPRINGER MD 09/13/17 Ferrous Sulfate* (Ferrous Sulfate*) 325 Mg Tabec, 325 MG PO DAILY for 30 Days, TAB Prov:RENE SPRINGER MD 09/13/17 Enoxaparin Sodium (Enoxaparin Sodium) 40 Mg/0.4 Ml Syringe, 40 MG SC DAILY for 10 Days Prov:RENE SPRINGER MD 09/13/17 Hydrocortisone* Rectal (Preparation H* Cream) 1% - 26 Gm Cream.gm., 1 APPLIC AL BID for 7 Days, #1 TUB Prov:HARELEN KEBEDE MD 05/07/17 Polyethylene Glycol* (Miralax*) 17 Gm Powd.pack, 17 GM PO DAILY, #5 PACKET Prov:HARLEEN KEBEDE MD 05/07/17 Mineral Oil* (Fleet* Mineral Oil Enema) 133 Ml Oil, 133 ML AL NEEDED Y for CONSTIPATION, #3 ENEMA Prov:HARLEEN KEBEDE MD 05/07/17 Lidocaine (LIDOCAINE) 35.44 Gm Oint...g., 35.44 GM TP BID for 7 Days, #1 TUB Prov:HARLEEN KEBEDE MD 05/07/17 Follow-up Plan PCP in one week Primary Care Provider DO RACHEAL Loja MAOGANG MD Sep 13, 2017 15:32
[2017-09-13] MEDS ORDERED: SYN75 PO (15:35)
[2017-09-13] MEDS: DOCUSATE SODIUM 100 MG CAP PO SCH (21:00)
[2017-09-14] MEDS: LEVOTHYROXINE 75 MCG TAB PO SCH (05:24)
[2017-09-14 07:54] VITALS: BP 155/78; PULSE 85
[2017-09-14 08:00] VITALS: BP 175/79; RESP 18
[2017-09-14] MEDS: LISINOPRIL 5 MG TAB PO SCH (08:39)
[2017-09-14] MEDS: AMLODIPINE 5 MG TAB PO SCH ×2 (08:40→21:14)
[2017-09-14] MEDS: FERROUS SULFATE (EC) 325 MG TAB PO SCH (09:00)
[2017-09-14] MEDS: ENOXAPARIN 40 MG/0.4 ML SYG SC SCH (09:00)
[2017-09-14] MEDS: HYDROCORTISONE 1% 28.35 GM OINT TOP SCH ×2 (09:00→21:00)
[2017-09-14] MEDS: ASPIRIN 81 MG TAB PO SCH (09:00)
[2017-09-14] MEDS: FAMOTIDINE 20 MG TAB PO SCH (09:00)
[2017-09-14 14:00] VITALS: BP 158/82; RESP 18
--- NOTE | 2017-09-14 15:36 | PN ---
Date/Time of Note Date/Time of Note DATE: 09/14/17 TIME: 15:32 Assessment/Plan VTE Prophylaxis VTE Prophylaxis Intervention: LMWH Lines/Catheters IV Catheter Type (from Nrsg): No IV access Urinary Cath still in place: No Assessment/Plan Assessment/Plan 1. Left knee effusion, from trauma, pain management, PT, no surgical intervention needed 2. Osteoarthritis 3. S/p mechanical fall 4. Hypothyroidism. continue synthroid 5. Mild malnutrition. encourage oral intake. dietitian was consulted 6. hx Dementia. Continue fall precautions. Continue with reorientation. 7. History of psoriasis. Continue had a cortisone complex. 8. Anemia, macrocytic, stable 9. HTN, increase lisinopril 10. Awaiting for placement Subjective 24 Hr Interval Summary Free Text/Dictation no event. afebrile Exam/Review of Systems Vital Signs Vitals Vital Signs Date Time Temp Pulse Resp B/P Pulse Ox O2 Delivery O2 Flow Rate FiO2 09/14/17 14:00 98.4 76 18 158/82 98 09/11/17 03:09 Room Air Intake and Output 09/13/17 09/13/17 09/14/17 15:00 23:00 07:00 Intake Total 120 ml 480 ml Balance 120 ml 480 ml Exam Constitutional: alert, oriented, well developed Head: atraumatic, normocephalic Eyes: EOMI, PERRL, nl conjunctiva, nl lids ENMT: nl external ears & nose, nl lips & teeth, nl nasal mucosa & septum Neck: non-tender, supple Respiratory: clear to auscultation, normal air movement, No congested cough, No crackles/rales, No diminished breath sounds, No intercostal retraction, No labored breathing, No other, No respirations, No tactile fremitus, No wheezing Cardiovascular: nl pulses, regular rate and rhythm, No S3, No S4, No bruits, No diastolic murmur, No edema, No gallop, No irregular rhythm, No jugular venous distention (JVD), No murmurs/extra sounds, No other, No rub, No systolic murmur Gastrointestinal: nl liver, spleen, non-tender, soft Extremities: normal pulses, other (left knee swelling, less) Neurological: PUMP ERECTOR II-XII intact, nl speech Results Result Diagram: 09/11/17 1418 09/11/17 1418 Medications Medications Current Medications Ondansetron HCl (Zofran Inj) 4 mg Q6H PRN IV NAUSEA AND/OR VOMITING; Start 09/04/17 at 09:30 Acetaminophen (Tylenol Tab) 650 mg Q6H PRN PO PAIN LEVEL 1-3 OR FEVER; Start 09/04/17 at 09:30 Acetaminophen/ Hydrocodone Bitart ([place] (5/325)) 1 tab Q6H PRN PO MODERATE PAIN LEVEL 4-6 Last administered on 09/13/17 05:56; Admin Dose 1 TAB; Start 09/04/17 at 09:30 Magnesium Hydroxide (Milk Of Mag) 30 ml DAILY PRN PO CONSTIPATION; Start at 09:30 Famotidine (Pepcid) 20 mg DAILY PO Last administered on 09/10/17 09:15; Admin Dose 20 MG; Start 09/04/17 at 10:00 Hydrocortisone (Hydrocortisone 1% Oint) 1 applic BID TOP Last administered on 09/11/17 11:01; Admin Dose 1 APPLIC; Start 09/04/17 at 11:00 Aspirin (Aspirin) 81 mg DAILY PO Last administered on 09/12/17 09:01; Admin Dose 81 MG; Start 09/05/17 at 09:00 Enoxaparin Sodium (Lovenox) 40 mg DAILY SC Last administered on 09/10/17 09: 22; Admin Dose 40 MG; Start 09/05/17 at 09:00 Ferrous Sulfate (Ferrous Sulfate (Ec)) 325 mg DAILY PO Last administered on 09:15; Admin Dose 325 MG; Start 09/05/17 at 09:00 Levothyroxine Sodium (Synthroid) 75 mcg DAILY@06 PO Last administered on 05:24; Admin Dose 75 MCG; Start 09/05/17 at 09:30 Hydralazine HCl (Apresoline) 10 mg Q4H PRN IV sbp>160 Last administered on 09/07 03:12; Admin Dose 10 MG; Start 09/05/17 at 09:30 Amlodipine Besylate (Norvasc) 5 mg BID PO Last administered on 09/14/17 08:40 ; Admin Dose 5 MG; Start 09/07/17 at 10:00 Docusate Sodium (Colace) 200 mg HS PO Last administered on 09/11/17 20:36; Admin Dose 200 MG; Start 09/09/17 at 21:00 Hydralazine HCl (Apresoline) 10 mg Q4H PRN IV ELEVATED SYSTOLIC BP; Start 08/16 at 23:00 Lisinopril (Zestril) 5 mg DAILY PO Last administered on 09/14/17 08:39; Admin Dose 5 MG; Start 09/10/17 at 11:30 Alprazolam (Xanax) 0.25 mg Q8H PRN PO ANXIETY; Start 09/11/17 at 09:00 RENE SPRINGER MD Sep 14, 2017 15:36
[2017-09-14] MEDS: DOCUSATE SODIUM 100 MG CAP PO SCH (21:15)
[2017-09-14 21:30] VITALS: BP 153/87; PULSE 93; RESP 18
[2017-09-15] MEDS: LEVOTHYROXINE 75 MCG TAB PO SCH (05:35)
[2017-09-15] MEDS: ASPIRIN 81 MG TAB PO SCH (08:07)
[2017-09-15] MEDS: FERROUS SULFATE (EC) 325 MG TAB PO SCH (08:07)
[2017-09-15] MEDS: LISINOPRIL 5 MG TAB PO SCH (08:08)
[2017-09-15] MEDS: HYDROCORTISONE 1% 28.35 GM OINT TOP SCH ×2 (08:08→21:08)
[2017-09-15] MEDS: ENOXAPARIN 40 MG/0.4 ML SYG SC SCH (08:08)
[2017-09-15] MEDS: FAMOTIDINE 20 MG TAB PO SCH (08:08)
[2017-09-15] MEDS: AMLODIPINE 5 MG TAB PO SCH ×2 (08:08→21:07)
--- NOTE | 2017-09-15 15:16 | PN ---
Date/Time of Note Date/Time of Note DATE: 09/15/17 TIME: 15:15 Assessment/Plan VTE Prophylaxis VTE Prophylaxis Intervention: SCD's Lines/Catheters IV Catheter Type (from Nrsg): No IV access Urinary Cath still in place: No Assessment/Plan Assessment/Plan 1. Left knee effusion, from trauma, pain management, PT, no surgical intervention needed 2. Osteoarthritis 3. S/p mechanical fall 4. Hypothyroidism. continue synthroid 5. Mild malnutrition. encourage oral intake. dietitian was consulted 6. hx Dementia. Continue fall precautions. Continue with reorientation. 7. History of psoriasis. Continue had a cortisone complex. 8. Anemia, macrocytic, stable 9. HTN, increase lisinopril 10. Awaiting for placement Subjective 24 Hr Interval Summary Free Text/Dictation still pain on left knee Exam/Review of Systems Vital Signs Vitals Vital Signs Date Time Temp Pulse Resp B/P Pulse Ox O2 Delivery O2 Flow Rate FiO2 09/14/17 21:30 97.9 93 18 153/87 97 Room Air Intake and Output 09/14/17 09/14/17 09/15/17 14:59 22:59 06:59 Intake Total 100 ml Balance 100 ml Exam Constitutional: alert Head: atraumatic, normocephalic Eyes: EOMI, PERRL, nl conjunctiva, nl lids ENMT: nl external ears & nose, nl lips & teeth, nl nasal mucosa & septum Neck: non-tender, supple Respiratory: clear to auscultation, normal air movement, No congested cough, No crackles/rales, No diminished breath sounds, No intercostal retraction, No labored breathing, No other, No respirations, No tactile fremitus, No wheezing Cardiovascular: nl pulses, regular rate and rhythm, No S3, No S4, No bruits, No diastolic murmur, No edema, No gallop, No irregular rhythm, No jugular venous distention (JVD), No murmurs/extra sounds, No other, No rub, No systolic murmur Gastrointestinal: nl liver, spleen, non-tender, soft Musculoskeletal: nl extremities to inspection Extremities: normal pulses, other (left knee mild swelling, no redness) Neurological: BUSINESS MACHINE MECHANIC II-XII intact, nl speech, nl strength Results Result Diagram: 09/11/17 1418 09/11/17 1418 Medications Medications Current Medications Ondansetron HCl (Zofran Inj) 4 mg Q6H PRN IV NAUSEA AND/OR VOMITING; Start 09/04/17 at 09:30 Acetaminophen (Tylenol Tab) 650 mg Q6H PRN PO PAIN LEVEL 1-3 OR FEVER; Start 09/04/17 at 09:30 Acetaminophen/ Hydrocodone Bitart ([place] (5/325)) 1 tab Q6H PRN PO MODERATE PAIN LEVEL 4-6 Last administered on 09/13/17 05:56; Admin Dose 1 TAB; Start 09/04/17 at 09:30 Magnesium Hydroxide (Milk Of Mag) 30 ml DAILY PRN PO CONSTIPATION; Start at 09:30 Famotidine (Pepcid) 20 mg DAILY PO Last administered on 09/10/17 09:15; Admin Dose 20 MG; Start 09/04/17 at 10:00 Hydrocortisone (Hydrocortisone 1% Oint) 1 applic BID TOP Last administered on 09/11/17 11:01; Admin Dose 1 APPLIC; Start 09/04/17 at 11:00 Aspirin (Aspirin) 81 mg DAILY PO Last administered on 09/12/17 09:01; Admin Dose 81 MG; Start 09/05/17 at 09:00 Enoxaparin Sodium (Lovenox) 40 mg DAILY SC Last administered on 09/10/17 09: 22; Admin Dose 40 MG; Start 09/05/17 at 09:00 Ferrous Sulfate (Ferrous Sulfate (Ec)) 325 mg DAILY PO Last administered on 09:15; Admin Dose 325 MG; Start 09/05/17 at 09:00 Levothyroxine Sodium (Synthroid) 75 mcg DAILY@06 PO Last administered on 05:24; Admin Dose 75 MCG; Start 09/05/17 at 09:30 Hydralazine HCl (Apresoline) 10 mg Q4H PRN IV sbp>160 Last administered on 09/07 03:12; Admin Dose 10 MG; Start 09/05/17 at 09:30 Amlodipine Besylate (Norvasc) 5 mg BID PO Last administered on 09/14/17 21:14 ; Admin Dose 5 MG; Start 09/07/17 at 10:00 Docusate Sodium (Colace) 200 mg HS PO Last administered on 11/15/17at 21:15; Admin Dose 200 MG; Start 09/09/17 at 21:00 Hydralazine HCl (Apresoline) 10 mg Q4H PRN IV ELEVATED SYSTOLIC BP; Start 08/16 at 23:00 Alprazolam (Xanax) 0.25 mg Q8H PRN PO ANXIETY; Start 09/11/17 at 09:00 Lisinopril (Zestril) 20 mg DAILY PO ; Start 09/15/17 at 09:00 RENE SPRINGER MD Sep 15, 2017 15:16
[2017-09-15] MEDS: DOCUSATE SODIUM 100 MG CAP PO SCH (21:07)
[2017-09-15 21:12] VITALS: BP 183/95; PULSE 95; RESP 19
--- NOTE | 2017-09-15 22:43 | RADRPT ---
PROCEDURE: Left tibia and fibula x-ray CLINICAL INDICATION: fall with left leg pain TECHNIQUE: AP, lateral views of the tibia and fibula were obtained. COMPARISON: None FINDINGS: The bones are osteopenic. Degenerative changes are noted within the knee joint. There is a questionable curvilinear lucency at the lateral tibial plateau. The remaining osseous structures are unremarkable. The joint space are preserved. The soft tissues are grossly unremarkable. IMPRESSION: 1. Questionable curvilinear lucency at the lateral tibial plateau. Correlate with point tenderness. Consider dedicated radiographs of the left knee to exclude fracture. RPTAT:AAJJ Physician Jason Date Time Electronically viewed and signed by Physician Jason on 09/15/2017 22:42 QL/
[2017-09-16] MEDS: LEVOTHYROXINE 75 MCG TAB PO SCH (06:00)
[2017-09-16 06:18] LABS: BASOPHIL # 0.1 10^3/ul (0.0-0.1); BASOPHILS % 0.8 % (0.0-2.0); EOSINOPHILS # 0.3 10^3/ul (0.0-0.5); EOSINOPHILS % 3.5 % (0.0-7.0); HEMATOCRIT 29.4 % (37.0-47.0); HEMOGLOBIN 9.9 g/dl (12.0-16.0); LYMPHOCYTES # 1.5 10^3/ul (0.8-2.9); LYMPHOCYTES % 19.2 % (15.0-51.0); MEAN CORPUSCULAR HEMOGLOBIN 33.6 pg (29.0-33.0); MEAN CORPUSCULAR HGB CONC 33.7 g/dl (32.0-37.0); MEAN CORPUSCULAR VOLUME 99.7 fl (82.0-101.0); MEAN PLATELET VOLUME 9.6 fl (7.4-10.4); MONOCYTE # 0.7 10^3/ul (0.3-0.9); MONOCYTES % 8.9 % (0.0-11.0); NEUTROPHIL # 5.4 10^3/ul (1.6-7.5); NEUTROPHILS % 67.2 % (39.0-77.0); PLATELET COUNT 344 10^3/UL (140-415); RED BLOOD COUNT 2.95 10^6/ul (4.20-5.40)
[2017-09-16 06:57] LABS: CALCIUM 9.7 mg/dl (8.4-10.2); CREATININE 0.55 mg/dl (0.44-1.00); POTASSIUM 3.3 mmol/L (3.5-5.1)
[2017-09-16 08:41] VITALS: BP 168/81; RESP 17
[2017-09-16] MEDS: HYDROCORTISONE 1% 28.35 GM OINT TOP SCH ×2 (09:00→21:00)
[2017-09-16] MEDS: ASPIRIN 81 MG TAB PO SCH (09:00)
[2017-09-16] MEDS: AMLODIPINE 5 MG TAB PO SCH ×2 (09:00→21:00)
[2017-09-16] MEDS: FAMOTIDINE 20 MG TAB PO SCH (09:00)
[2017-09-16] MEDS: LISINOPRIL 5 MG TAB PO SCH (09:00)
[2017-09-16] MEDS: ENOXAPARIN 40 MG/0.4 ML SYG SC SCH (09:00)
[2017-09-16] MEDS: FERROUS SULFATE (EC) 325 MG TAB PO SCH (09:00)
[2017-09-16 15:34] VITALS: BP 165/81; RESP 18
--- NOTE | 2017-09-16 16:17 | PN ---
Date/Time of Note Date/Time of Note DATE: 09/16/17 TIME: 16:15 Assessment/Plan VTE Prophylaxis VTE Prophylaxis Intervention: SCD's Lines/Catheters IV Catheter Type (from Nrsg): No IV access Urinary Cath still in place: No Assessment/Plan Assessment/Plan 1. Left knee effusion, from trauma, pain management, PT, no surgical intervention needed, improving 2. Osteoarthritis 3. S/p mechanical fall 4. Hypothyroidism. continue synthroid 5. Mild malnutrition. encourage oral intake. dietitian was consulted 6. hx Dementia. Continue fall precautions. Continue with reorientation. 7. History of psoriasis. Continue had a cortisone complex. 8. Anemia, macrocytic, stable 9. HTN, increase lisinopril 10. Awaiting for placement Subjective 24 Hr Interval Summary Free Text/Dictation demented, full alert Exam/Review of Systems Vital Signs Vitals Vital Signs Date Time Temp Pulse Resp B/P Pulse Ox O2 Delivery O2 Flow Rate FiO2 09/16/17 15:34 97.2 98 18 165/81 99 09/15/17 21:12 Room Air Intake and Output 09/15/17 09/15/17 09/16/17 15:00 23:00 07:00 Intake Total 210 ml 310 ml Balance 210 ml 310 ml Exam Constitutional: alert, well developed Head: atraumatic, normocephalic Eyes: EOMI, PERRL, nl conjunctiva, nl lids ENMT: nl external ears & nose, nl lips & teeth, nl nasal mucosa & septum Neck: non-tender, supple Respiratory: clear to auscultation, normal air movement, No congested cough, No crackles/rales, No diminished breath sounds, No intercostal retraction, No labored breathing, No other, No respirations, No tactile fremitus, No wheezing Cardiovascular: nl pulses, regular rate and rhythm, No S3, No S4, No bruits, No diastolic murmur, No edema, No gallop, No irregular rhythm, No jugular venous distention (JVD), No murmurs/extra sounds, No other, No rub, No systolic murmur Gastrointestinal: nl liver, spleen, non-tender, soft Musculoskeletal: nl extremities to inspection Extremities: normal pulses, No calf tenderness, No clubbing, No cyanosis, No edema, No other, No palpable cord, No pitting pedal edema, No tenderness Neurological: RAG INSPECTOR II-XII intact Results Result Diagram: 09/16/17 0549 09/16/17 0549 Results 24 hrs Laboratory Tests Test 09/16/17 05:49 White Blood Count 8.0 Red Blood Count 2.95 L Hemoglobin 9.9 L Hematocrit 29.4 L Mean Corpuscular Volume 99.7 Mean Corpuscular Hemoglobin 33.6 H Mean Corpuscular Hemoglobin Concent 33.7 Red Cell Distribution Width 13.0 Platelet Count 344 Mean Platelet Volume 9.6 Neutrophils % 67.2 Lymphocytes % 19.2 Monocytes % 8.9 Eosinophils % 3.5 Basophils % 0.8 Nucleated Red Blood Cells % 0.0 Neutrophils # 5.4 Lymphocytes # 1.5 Monocytes # 0.7 Eosinophils # 0.3 Basophils # 0.1 Nucleated Red Blood Cells # 0.0 Sodium Level 143 Potassium Level 3.3 L Chloride Level 106 Carbon Dioxide Level 29 Anion Gap 11 Blood Urea Nitrogen 19 Creatinine 0.55 Glucose Level 114 Calcium Level 9.7 Medications Medications Current Medications Ondansetron HCl (Zofran Inj) 4 mg Q6H PRN IV NAUSEA AND/OR VOMITING; Start 09/04/17 at 09:30 Acetaminophen (Tylenol Tab) 650 mg Q6H PRN PO PAIN LEVEL 1-3 OR FEVER; Start 09/04/17 at 09:30 Acetaminophen/ Hydrocodone Bitart ([place] (5/325)) 1 tab Q6H PRN PO MODERATE PAIN LEVEL 4-6 Last administered on 09/13/17 05:56; Admin Dose 1 TAB; Start 09/04/17 at 09:30 Magnesium Hydroxide (Milk Of Mag) 30 ml DAILY PRN PO CONSTIPATION; Start at 09:30 Famotidine (Pepcid) 20 mg DAILY PO Last administered on 09/10/17 09:15; Admin Dose 20 MG; Start 09/04/17 at 10:00 Hydrocortisone (Hydrocortisone 1% Oint) 1 applic BID TOP Last administered on 09/15/17 21:08; Admin Dose 1 APPLIC; Start 09/04/17 at 11:00 Aspirin (Aspirin) 81 mg DAILY PO Last administered on 09/12/17 09:01; Admin Dose 81 MG; Start 09/05/17 at 09:00 Enoxaparin Sodium (Lovenox) 40 mg DAILY SC Last administered on 09/10/17 09: 22; Admin Dose 40 MG; Start 09/05/17 at 09:00 Ferrous Sulfate (Ferrous Sulfate (Ec)) 325 mg DAILY PO Last administered on 09:15; Admin Dose 325 MG; Start 09/05/17 at 09:00 Levothyroxine Sodium (Synthroid) 75 mcg DAILY@06 PO Last administered on 05:24; Admin Dose 75 MCG; Start 09/05/17 at 09:30 Hydralazine HCl (Apresoline) 10 mg Q4H PRN IV sbp>160 Last administered on 09/07 03:12; Admin Dose 10 MG; Start 09/05/17 at 09:30 Amlodipine Besylate (Norvasc) 5 mg BID PO Last administered on 09/15/17 21:07 ; Admin Dose 5 MG; Start 09/07/17 at 10:00 Docusate Sodium (Colace) 200 mg HS PO Last administered on 09/15/17 21:07; Admin Dose 200 MG; Start 09/09/17 at 21:00 Hydralazine HCl (Apresoline) 10 mg Q4H PRN IV ELEVATED SYSTOLIC BP; Start 08/16 at 23:00 Alprazolam (Xanax) 0.25 mg Q8H PRN PO ANXIETY; Start 09/11/17 at 09:00 Lisinopril (Zestril) 20 mg DAILY PO ; Start 09/15/17 at 09:00 RENE SPRINGER MD Sep 16, 2017 16:17
[2017-09-16] MEDS: DOCUSATE SODIUM 100 MG CAP PO SCH (21:00)
[2017-09-17 02:00] VITALS: BP 136/80; RESP 18
[2017-09-17] MEDS: LEVOTHYROXINE 75 MCG TAB PO SCH ×2 (06:00→09:05)
[2017-09-17 07:44] VITALS: BP 142/80; RESP 18
[2017-09-17] MEDS: HYDROCORTISONE 1% 28.35 GM OINT TOP SCH ×2 (09:00→21:00)
[2017-09-17] MEDS: ENOXAPARIN 40 MG/0.4 ML SYG SC SCH (09:00)
[2017-09-17] MEDS: LISINOPRIL 5 MG TAB PO SCH (09:00)
[2017-09-17] MEDS: FERROUS SULFATE (EC) 325 MG TAB PO SCH (09:00)
[2017-09-17] MEDS: FAMOTIDINE 20 MG TAB PO SCH (09:00)
[2017-09-17] MEDS: AMLODIPINE 5 MG TAB PO SCH ×2 (09:04→21:00)
[2017-09-17] MEDS: ASPIRIN 81 MG TAB PO SCH (09:04)
[2017-09-17] MEDS ORDERED: POTASSIUM CHLORIDE (SR) 20 MEQ TAB PO STA (09:51)
--- NOTE | 2017-09-17 10:03 | PN ---
Date/Time of Note Date/Time of Note DATE: 09/17/17 TIME: 09:59 Assessment/Plan VTE Prophylaxis VTE Prophylaxis Intervention: SCD's Lines/Catheters [facility] no IV access Urinary Cath still in place: No Assessment/Plan Problems: (1) Debility Status: Chronic Comment: Patient lives alone in an apartment building. She reports she has a younger friend who helps her out but I have significant questions about her abilities for self care. At this time she is doing better since she has been in a controlled environment and actually receiving her medications. She reports she has not been to see a physician as an outpatient in a number of years. In addition she informs us she had been off of her medications as evidenced by her blood tests (2) Hypothyroidism (acquired) Status: Chronic Comment: She is back on her levothyroxine starting to improve. (3) Iron deficiency anemia Status: Chronic Comment: Replete with iron parenterally as I am not sure with contrast patient take it at home Qualifiers: Iron deficiency anemia type: unspecified iron deficiency Qualified Code: D50.9 - Iron deficiency anemia, unspecified iron deficiency anemia type (4) Tricompartment osteoarthritis of left knee Status: Chronic Comment: Noted. Please see the orthopedic consultation which was not worth the time Subjective 24 Hr Interval Summary Free Text/Dictation Patient has just completed a bed bath. Patient's request firmly and repetitively is for a walker. Constitutional: no complaints (Denies fevers chills or sweats) Respiratory: no complaints Cardiovascular: no complaints Gastrointestinal: no complaints Genitourinary: no complaints Musculoskeletal: other (Pain and limited range of motion left knee chronically) Exam/Review of Systems Vital Signs Vitals Vital Signs Date Time Temp Pulse Resp B/P Pulse Ox O2 Delivery O2 Flow Rate FiO2 09/17/17 07:44 98.0 85 18 142/80 98 09/15/17 21:12 Room Air Intake and Output 09/16/17 09/16/17 09/17/17 14:59 22:59 06:59 Intake Total 300 ml 200 ml Balance 300 ml 200 ml Exam Constitutional: alert, oriented Head: atraumatic, normocephalic Respiratory: clear to auscultation, normal air movement Cardiovascular: nl pulses, regular rate and rhythm Gastrointestinal: nl liver, spleen, non-tender, soft Results Result Diagram: 09/16/17 0549 09/16/1749 Medications Medications Current Medications Ondansetron HCl (Zofran Inj) 4 mg Q6H PRN IV NAUSEA AND/OR VOMITING; Start 09/04/17 at 09:30 Acetaminophen (Tylenol Tab) 650 mg Q6H PRN PO PAIN LEVEL 1-3 OR FEVER; Start 09/04/17 at 09:30 Acetaminophen/ Hydrocodone Bitart ([place] (5/325)) 1 tab Q6H PRN PO MODERATE PAIN LEVEL 4-6 Last administered on 09/13/17 05:56; Admin Dose 1 TAB; Start 09/04/17 at 09:30 Magnesium Hydroxide (Milk Of Mag) 30 ml DAILY PRN PO CONSTIPATION Last administered on 09/17/17 09:09; Admin Dose 30 ML; Start 09/04/17 at 09:30 Famotidine (Pepcid) 20 mg DAILY PO Last administered on 09/17/17 09:00; Admin Dose 20 MG; Start 09/04/17 at 10:00 Hydrocortisone (Hydrocortisone 1% Oint) 1 applic BID TOP Last administered on 09/16/17 21:00; Admin Dose 1 APPLIC; Start 09/04/17 at 11:00 Aspirin (Aspirin) 81 mg DAILY PO Last administered on 09/17/17 09:04; Admin Dose 81 MG; Start 09/05/17 at 09:00 Enoxaparin Sodium (Lovenox) 40 mg DAILY SC Last administered on 09/10/17 09: 22; Admin Dose 40 MG; Start 09/05/17 at 09:00 Ferrous Sulfate (Ferrous Sulfate (Ec)) 325 mg DAILY PO Last administered on 09:00; Admin Dose 325 MG; Start 09/05/17 at 09:00 Levothyroxine Sodium (Synthroid) 75 mcg DAILY@06 PO Last administered on 09:05; Admin Dose 75 MCG; Start 09/05/17 at 09:30 Hydralazine HCl (Apresoline) 10 mg Q4H PRN IV sbp>160 Last administered on 09/07 03:12; Admin Dose 10 MG; Start 09/05/17 at 09:30 Amlodipine Besylate (Norvasc) 5 mg BID PO Last administered on 11/18/17at 09:04 ; Admin Dose 5 MG; Start 09/07/17 at 10:00 Docusate Sodium (Colace) 200 mg HS PO Last administered on 09/15/17 21:07; Admin Dose 200 MG; Start 09/09/17 at 21:00 Hydralazine HCl (Apresoline) 10 mg Q4H PRN IV ELEVATED SYSTOLIC BP; Start 08/16 at 23:00 Alprazolam (Xanax) 0.25 mg Q8H PRN PO ANXIETY; Start 09/11/17 at 09:00 Lisinopril (Zestril) 20 mg DAILY PO Last administered on 09/17/17 09:00; Admin Dose 20 MG; Start 09/15/17 at 09:00 FAUSTO TATE MD Sep 17, 2017 10:03
[2017-09-17] MEDS: FOLIC ACID 1 MG TAB PO SCH (10:41)
[2017-09-17] MEDS ORDERED: POTASSIUM CHLORIDE 30 MEQ in SOD CHLORIDE 0.9% 150 ML IVPB ONE (11:30)
[2017-09-17] MEDS: SOD FERRIC GLUC COMPLX 125 MG in SOD CHLORIDE 0.9% 100 ML IVPB SCH (12:32)
[2017-09-17 14:00] VITALS: BP 180/78; RESP 18
[2017-09-17] MEDS ORDERED: LORAZEPAM 2 MG INJ IV ONE (14:00)
[2017-09-17] MEDS: DOCUSATE SODIUM 100 MG CAP PO SCH (21:00)
[2017-09-17 23:43] VITALS: BP 141/82; PULSE 96; RESP 18
[2017-09-18] MEDS: LEVOTHYROXINE 75 MCG TAB PO SCH (06:00)
[2017-09-18 08:23] VITALS: BP 147/83; RESP 18
[2017-09-18] MEDS: FOLIC ACID 1 MG TAB PO SCH (09:53)
[2017-09-18] MEDS: ASPIRIN 81 MG TAB PO SCH (09:53)
[2017-09-18] MEDS: FERROUS SULFATE (EC) 325 MG TAB PO SCH (09:53)
[2017-09-18] MEDS: FAMOTIDINE 20 MG TAB PO SCH (09:53)
[2017-09-18] MEDS: AMLODIPINE 5 MG TAB PO SCH ×2 (09:54→20:57)
[2017-09-18] MEDS: HYDROCORTISONE 1% 28.35 GM OINT TOP SCH ×2 (09:55→21:00)
[2017-09-18] MEDS: LISINOPRIL 5 MG TAB PO SCH (09:55)
[2017-09-18] MEDS: ENOXAPARIN 40 MG/0.4 ML SYG SC SCH (09:56)
--- NOTE | 2017-09-18 11:57 | PN ---
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 She has been seen by orthopedics and feel that she is not appropriate surgical candidate. Given the totality of the situation that she is and I am not certain that trying to take her through surgery and more importantly the rehabilitation after surgery would be successful. (2) Debility Status: Chronic Comment: Noted. She has not been caring for herself well and essentially needs placement. I have attempted to reach the spokesperson Marichuy however the home phone number is disconnected the work number I left a voicemail. Will need assistance from case management especially from her insurance provider for successful stable safe placement. Discharged home while not immediately threatening would ultimately be a disaster within a few weeks (3) Hypothyroidism (acquired) Status: Chronic Comment: Back on medications. I do not believe that the hypothyroidism is accounting for the alteration and mental status as of this moment (4) Iron deficiency anemia Status: Chronic Comment: She is being repleted Qualifiers: Iron deficiency anemia type: unspecified iron deficiency Qualified Code: D50.9 - Iron deficiency anemia, unspecified iron deficiency anemia type (5) Altered mental status Status: Acute Comment: She has had negative CT scan will. I will complete the mental status blood test evaluations however believe this represents a long-term problem. She is going to need placement as sending her to live independently his recipe for disaster Qualifiers: Altered mental status type: unspecified Qualified Code: R41.82 - Altered mental status, unspecified altered mental status type Subjective 24 Hr Interval Summary Free Text/Dictation Patient is a bit more animated today. She wishes to discuss therapeutics about getting herself up and around. Constitutional: no complaints Respiratory: no complaints Cardiovascular: no complaints Gastrointestinal: no complaints Genitourinary: no complaints Exam/Review of Systems Vital Signs Vitals Vital Signs Date Time Temp Pulse Resp B/P Pulse Ox O2 Delivery O2 Flow Rate FiO2 09/18/17 08:23 98.5 100 18 147/83 97 09/17/17 23:43 Room Air Intake and Output 09/17/17 09/17/17 09/18/17 15:00 23:00 07:00 Intake Total 340 ml 240 ml Balance 340 ml 240 ml Exam Constitutional: alert, other (Oriented to season believes it is in September. Does not understand the place and believes that she is in her apartment) Head: atraumatic, normocephalic Respiratory: clear to auscultation, normal air movement Cardiovascular: nl pulses, regular rate and rhythm Extremities: other (Arthritic changes of the knees and ankles) Results Result Diagram: 09/16/1754809/16/17548 Medications Medications Current Medications Ondansetron HCl (Zofran Inj) 4 mg Q6H PRN IV NAUSEA AND/OR VOMITING; Start 09/04/17 at 09:30 Acetaminophen (Tylenol Tab) 650 mg Q6H PRN PO PAIN LEVEL 1-3 OR FEVER; Start 09/04/17 at 09:30 Acetaminophen/ Hydrocodone Bitart ([place] (5/325)) 1 tab Q6H PRN PO MODERATE PAIN LEVEL 4-6 Last administered on 09/13/17 05:56; Admin Dose 1 TAB; Start 09/04/17 at 09:30 Magnesium Hydroxide (Milk Of Mag) 30 ml DAILY PRN PO CONSTIPATION Last administered on 09/17/17 09:09; Admin Dose 30 ML; Start 09/04/17 at 09:30 Famotidine (Pepcid) 20 mg DAILY PO Last administered on 09/18/17 09:53; Admin Dose 20 MG; Start 09/04/17 at 10:00 Hydrocortisone (Hydrocortisone 1% Oint) 1 applic BID TOP Last administered on 09/18/17 09:55; Admin Dose 1 APPLIC; Start 09/04/17 at 11:00 Aspirin (Aspirin) 81 mg DAILY PO Last administered on 09/18/17 09:53; Admin Dose 81 MG; Start 09/05/17 at 09:00 Enoxaparin Sodium (Lovenox) 40 mg DAILY SC Last administered on 09/18/17 09: 56; Admin Dose 40 MG; Start 09/05/17 at 09:00 Ferrous Sulfate (Ferrous Sulfate (Ec)) 325 mg DAILY PO Last administered on 09:53; Admin Dose 325 MG; Start 09/05/17 at 09:00 Levothyroxine Sodium (Synthroid) 75 mcg DAILY@06 PO Last administered on 09:05; Admin Dose 75 MCG; Start 09/05/17 at 09:30 Hydralazine HCl (Apresoline) 10 mg Q4H PRN IV sbp>160 Last administered on 09/07 03:12; Admin Dose 10 MG; Start 09/05/17 at 09:30 Amlodipine Besylate (Norvasc) 5 mg BID PO Last administered on 09/18/17 09:54 ; Admin Dose 5 MG; Start 09/07/17 at 10:00 Docusate Sodium (Colace) 200 mg HS PO Last administered on 09/15/17 21:07; Admin Dose 200 MG; Start 09/09/17 at 21:00 Hydralazine HCl (Apresoline) 10 mg Q4H PRN IV ELEVATED SYSTOLIC BP; Start 08/16 at 23:00 Alprazolam (Xanax) 0.25 mg Q8H PRN PO ANXIETY; Start 09/11/17 at 09:00 Lisinopril (Zestril) 20 mg DAILY PO Last administered on 09/18/17 09:55; Admin Dose 20 MG; Start 09/15/17 at 09:00 Folic Acid 1 mg 1 mg DAILY PO Last administered on 09/18/17 09:53; Admin Dose 1 MG; Start 09/17/17 at 10:00 Ferric Sodium Gluconate Complex/ Sodium Chloride (Ferrlecit/NS) 110 ml @ 100 mls/hr Q24H IVPB ; Start 09/17/17 at 13:00; Stop 09/19/17 at 14:05 FAUSTO TATE MD Sep 18, 2017 11:57
[2017-09-18] MEDS: SOD FERRIC GLUC COMPLX 125 MG in SOD CHLORIDE 0.9% 100 ML IVPB SCH (13:00)
[2017-09-18 15:25] VITALS: BP 144/77; RESP 16
[2017-09-18 20:38] VITALS: BP 113/59; RESP 18
[2017-09-18] MEDS: DOCUSATE SODIUM 100 MG CAP PO SCH (20:56)
[2017-09-18 22:00] VITALS: BP_DIAS 77; RESP 22
[2017-09-19 02:00] VITALS: BP 132/74; RESP 18
[2017-09-19] MEDS: LEVOTHYROXINE 75 MCG TAB PO SCH (06:00)
[2017-09-19] MEDS: LISINOPRIL 5 MG TAB PO SCH (09:00)
[2017-09-19] MEDS: FOLIC ACID 1 MG TAB PO SCH (09:00)
[2017-09-19] MEDS: ASPIRIN 81 MG TAB PO SCH (09:00)
[2017-09-19] MEDS: AMLODIPINE 5 MG TAB PO SCH ×2 (09:00→21:00)
[2017-09-19] MEDS: HYDROCORTISONE 1% 28.35 GM OINT TOP SCH ×2 (09:00→21:00)
[2017-09-19] MEDS: FERROUS SULFATE (EC) 325 MG TAB PO SCH (09:00)
[2017-09-19] MEDS: ENOXAPARIN 40 MG/0.4 ML SYG SC SCH (09:00)
[2017-09-19] MEDS: FAMOTIDINE 20 MG TAB PO SCH (09:00)
--- NOTE | 2017-09-19 11:50 | PN ---
Date/Time of Note Date/Time of Note DATE: 09/19/17 TIME: 11:49 Assessment/Plan VTE Prophylaxis VTE Prophylaxis Intervention: ambulation Lines/Catheters IV Catheter Type (from Nrs): No IV access Urinary Cath still in place: No Assessment/Plan Chief Complaint/Hosp Course 82 yo F with PMH hypothyroidism, psoriasis, previous colectomy, no obvious history of dementia, and psoriasis presented to ED for left knee pain after a fall. 1. Left knee tricompartmental osteoarthrosis with with joint effusion/ synovitis. No acute fractures. -Not amenable to any surgical procedure per orthopedic evaluation. -Continue pain control. 2. Iron deficiency anemia. Continue iron supplements. 3. Essential hypertension. Continue antihypertensives. 4. Hypothyroidism. Continue Synthroid. 5. Questionable dementia. Continue frequent reorientation. 6. Psoriasis. Continue topical cortisone cream. Disposition/plan: Patient is medically cleared for discharge to extended care facility. Follow-up with case management recommendation and placement. Patient was seen in collaboration with . Problems: Subjective 24 Hr Interval Summary Free Text/Dictation Patient sleeping comfortably in bed. She does not want to be touched. Exam/Review of Systems Vital Signs Vitals Vital Signs Date Time Temp Pulse Resp B/P Pulse Ox O2 Delivery O2 Flow Rate FiO2 09/19/17 02:00 98.6 83 18 132/74 98 09/17/17 23:43 Room Air Intake and Output 09/18/17 09/18/17 09/19/17 15:00 23:00 07:00 Intake Total 420 ml 240 ml Balance 420 ml 240 ml Exam General: Chronically ill looking elderly female, lying in bed comfortably. HEENT: Normocephalic, Atraumatic, No laceration or hematoma; Eyes: PEERL, Conjunctiva clear, Anicteric sclera Neck: Supple without any lymphadenopathy, nontender, no JVD, no carotid bruits, trachea midline, no thyromegaly Cardiac: S1, S2 auscultated, regular rhythm and rate, no mumurs or gallop Pulmonary: Normal respiratory effort. Chest clear to auscultation bilaterally, no adventitious breath sounds GI: Abdomen normal to inspection. Soft, non tender, non- distended, no masses, no rebound tenderness or guarding. Bowel sounds active on all four quadrants Genitourinary: Deferred Extremities: No cyanosis, clubbing, or edema. Pulses [2+] bilaterally. Full ROM on all four extremities. No focal weakness appreciated. Neurologic: Confused. Alert to person. Skin: Clean,dry, and intact. No ecchymosis, no rashes, or lesions Results Result Diagram: 09/16/1754809/16/17548 Results 24 hrs Laboratory Tests Test 09/18/17 12:42 Rapid Plasma Reagin NONREACTIVE Hepatitis B Surface Antigen NEGATIVE Hepatitis C Antibody NEGATIVE Medications Medications Current Medications Ondansetron HCl (Zofran Inj) 4 mg Q6H PRN IV NAUSEA AND/OR VOMITING; Start 09/04/17 at 09:30 Acetaminophen (Tylenol Tab) 650 mg Q6H PRN PO PAIN LEVEL 1-3 OR FEVER; Start 09/04/17 at 09:30 Acetaminophen/ Hydrocodone Bitart ([place] (5/325)) 1 tab Q6H PRN PO MODERATE PAIN LEVEL 4-6 Last administered on 09/13/17 05:56; Admin Dose 1 TAB; Start 09/04/17 at 09:30 Magnesium Hydroxide (Milk Of Mag) 30 ml DAILY PRN PO CONSTIPATION Last administered on 09/17/17 09:09; Admin Dose 30 ML; Start 09/04/17 at 09:30 Famotidine (Pepcid) 20 mg DAILY PO Last administered on 09/18/17 09:53; Admin Dose 20 MG; Start 09/04/17 at 10:00 Hydrocortisone (Hydrocortisone 1% Oint) 1 applic BID TOP Last administered on 09/18/17 09:55; Admin Dose 1 APPLIC; Start 09/04/17 at 11:00 Aspirin (Aspirin) 81 mg DAILY PO Last administered on 09/18/17 09:53; Admin Dose 81 MG; Start 09/05/17 at 09:00 Enoxaparin Sodium (Lovenox) 40 mg DAILY SC Last administered on 09/18/17 09: 56; Admin Dose 40 MG; Start 09/05/17 at 09:00 Ferrous Sulfate (Ferrous Sulfate (Ec)) 325 mg DAILY PO Last administered on 09:53; Admin Dose 325 MG; Start 09/05/17 at 09:00 Levothyroxine Sodium (Synthroid) 75 mcg DAILY@06 PO Last administered on 09:05; Admin Dose 75 MCG; Start 09/05/17 at 09:30 Hydralazine HCl (Apresoline) 10 mg Q4H PRN IV sbp>160 Last administered on 09/07 03:12; Admin Dose 10 MG; Start 09/05/17 at 09:30 Amlodipine Besylate (Norvasc) 5 mg BID PO Last administered on 09/18/17 20:57 ; Admin Dose 5 MG; Start 09/07/17 at 10:00 Docusate Sodium (Colace) 200 mg HS PO Last administered on 09/18/17 20:56; Admin Dose 200 MG; Start 09/09/17 at 21:00 Hydralazine HCl (Apresoline) 10 mg Q4H PRN IV ELEVATED SYSTOLIC BP; Start 08/16 at 23:00 Alprazolam (Xanax) 0.25 mg Q8H PRN PO ANXIETY Last administered on 09/18/17 22:19; Admin Dose 0.25 MG; Start 09/11/17 at 09:00 Lisinopril (Zestril) 20 mg DAILY PO Last administered on 09/18/17 09:55; Admin Dose 20 MG; Start 09/15/17 at 09:00 Folic Acid 1 mg 1 mg DAILY PO Last administered on 09/18/17 09:53; Admin Dose 1 MG; Start 09/17/17 at 10:00 Ferric Sodium Gluconate Complex/ Sodium Chloride (Ferrlecit/NS) 110 ml @ 100 mls/hr Q24H IVPB ; Start 09/17/17 at 13:00; Stop 09/19/17 at 14:05 KENZIE BRUNSON NP Sep 19, 2017 11:49
[2017-09-19] MEDS: SOD FERRIC GLUC COMPLX 125 MG in SOD CHLORIDE 0.9% 100 ML IVPB SCH (12:11)
[2017-09-19] MEDS: DOCUSATE SODIUM 100 MG CAP PO SCH (21:00)
[2017-09-20 02:45] VITALS: BP 151/71; RESP 20
[2017-09-20] MEDS: LEVOTHYROXINE 75 MCG TAB PO SCH (06:00)
[2017-09-20 07:55] VITALS: BP 136/70; RESP 18
[2017-09-20] MEDS: AMLODIPINE 5 MG TAB PO SCH ×2 (08:52→21:00)
[2017-09-20] MEDS: ASPIRIN 81 MG TAB PO SCH (08:52)
[2017-09-20] MEDS: FERROUS SULFATE (EC) 325 MG TAB PO SCH (08:52)
[2017-09-20] MEDS: FAMOTIDINE 20 MG TAB PO SCH (08:52)
[2017-09-20] MEDS: FOLIC ACID 1 MG TAB PO SCH (08:52)
[2017-09-20] MEDS: LISINOPRIL 5 MG TAB PO SCH (08:53)
[2017-09-20] MEDS: HYDROCORTISONE 1% 28.35 GM OINT TOP SCH ×2 (08:59→21:00)
[2017-09-20] MEDS: ENOXAPARIN 40 MG/0.4 ML SYG SC SCH (09:00)
[2017-09-20] MEDS: HYDROCODONE/APAP (5/325) TAB PO PRN (09:02)
--- NOTE | 2017-09-20 11:40 | PN ---
Date/Time of Note Date/Time of Note DATE: 09/20/17 TIME: 11:40 Assessment/Plan VTE Prophylaxis VTE Prophylaxis Intervention: LMWH Lines/Catheters IV Catheter Type (from Nrs): No IV access Urinary Cath still in place: No Assessment/Plan Chief Complaint/Hosp Course 82 yo F with PMH hypothyroidism, psoriasis, previous colectomy, no obvious history of dementia, and psoriasis presented to ED for left knee pain after a fall. 1. Left knee tricompartmental osteoarthrosis with with joint effusion/ synovitis. No acute fractures. -Not amenable to any surgical procedure per orthopedic evaluation. -Continue pain control. 2. Iron deficiency anemia. Continue iron supplements. 3. Essential hypertension. Continue antihypertensives. 4. Hypothyroidism. Continue Synthroid. 5. Questionable dementia. Continue frequent reorientation. 6. Psoriasis. Continue topical cortisone cream. Disposition/plan: Patient is medically cleared for discharge to extended care facility. Follow-up with case management recommendation and placement. DVT prophylaxis: Lovenox Patient was seen in collaboration with . Problems: Cont'd Hospitalization Reason: placement Subjective 24 Hr Interval Summary Free Text/Dictation Patient lying in bed comfortably. No acute distress. Exam/Review of Systems Vital Signs Vitals Vital Signs Date Time Temp Pulse Resp B/P Pulse Ox O2 Delivery O2 Flow Rate FiO2 09/20/17 07:55 97.9 83 18 136/70 98 09/17/17 23:43 Room Air Intake and Output 09/19/17 09/19/17 09/20/17 15:00 23:00 07:00 Intake Total 220 ml 480 ml Balance 220 ml 480 ml Exam General: Chronically ill looking elderly female, lying in bed comfortably. HEENT: Normocephalic, Atraumatic, No laceration or hematoma; Eyes: PEERL, Conjunctiva clear, Anicteric sclera Neck: Supple without any lymphadenopathy, nontender, no JVD, no carotid bruits, trachea midline, no thyromegaly Cardiac: S1, S2 auscultated, regular rhythm and rate, no mumurs or gallop Pulmonary: Normal respiratory effort. Chest clear to auscultation bilaterally, no adventitious breath sounds GI: Abdomen normal to inspection. Soft, non tender, non- distended, no masses, no rebound tenderness or guarding. Bowel sounds active on all four quadrants Genitourinary: Deferred Extremities: No cyanosis, clubbing, or edema. Pulses [2+] bilaterally. Full ROM on all four extremities. No focal weakness appreciated. Neurologic: Confused. Alert to person. Skin: Clean,dry, and intact. No ecchymosis, no rashes, or lesions Results Result Diagram: 09/16/1754809/16/17548 Medications Medications Current Medications Ondansetron HCl (Zofran Inj) 4 mg Q6H PRN IV NAUSEA AND/OR VOMITING; Start 09/04/17 at 09:30 Acetaminophen (Tylenol Tab) 650 mg Q6H PRN PO PAIN LEVEL 1-3 OR FEVER; Start 09/04/17 at 09:30 Acetaminophen/ Hydrocodone Bitart ([place] (5/325)) 1 tab Q6H PRN PO MODERATE PAIN LEVEL 4-6 Last administered on 09/20/17 09:02; Admin Dose 1 TAB; Start 09/04/17 at 09:30 Magnesium Hydroxide (Milk Of Mag) 30 ml DAILY PRN PO CONSTIPATION Last administered on 09/17/17 09:09; Admin Dose 30 ML; Start 09/04/17 at 09:30 Famotidine (Pepcid) 20 mg DAILY PO Last administered on 09/20/17 08:52; Admin Dose 20 MG; Start 09/04/17 at 10:00 Hydrocortisone (Hydrocortisone 1% Oint) 1 applic BID TOP Last administered on 09/18/17 09:55; Admin Dose 1 APPLIC; Start 09/04/17 at 11:00 Aspirin (Aspirin) 81 mg DAILY PO Last administered on 09/20/17 08:52; Admin Dose 81 MG; Start 09/05/17 at 09:00 Enoxaparin Sodium (Lovenox) 40 mg DAILY SC Last administered on 09/18/17 09: 56; Admin Dose 40 MG; Start 09/05/17 at 09:00 Ferrous Sulfate (Ferrous Sulfate (Ec)) 325 mg DAILY PO Last administered on 08:52; Admin Dose 325 MG; Start 09/05/17 at 09:00 Levothyroxine Sodium (Synthroid) 75 mcg DAILY@06 PO Last administered on 09:05; Admin Dose 75 MCG; Start 09/05/17 at 09:30 Hydralazine HCl (Apresoline) 10 mg Q4H PRN IV sbp>160 Last administered on 09/07 03:12; Admin Dose 10 MG; Start 09/05/17 at 09:30 Amlodipine Besylate (Norvasc) 5 mg BID PO Last administered on 09/20/17 08:52 ; Admin Dose 5 MG; Start 09/07/17 at 10:00 Docusate Sodium (Colace) 200 mg HS PO Last administered on 09/18/17 20:56; Admin Dose 200 MG; Start 09/09/17 at 21:00 Hydralazine HCl (Apresoline) 10 mg Q4H PRN IV ELEVATED SYSTOLIC BP; Start 08/16 at 23:00 Alprazolam (Xanax) 0.25 mg Q8H PRN PO ANXIETY Last administered on 09/18/17 22:19; Admin Dose 0.25 MG; Start 09/11/17 at 09:00 Lisinopril (Zestril) 20 mg DAILY PO Last administered on 09/20/17 08:53; Admin Dose 20 MG; Start 09/15/17 at 09:00 Folic Acid (Folic Acid) 1 mg DAILY PO Last administered on 09/20/17 08:52; Admin Dose 1 MG; Start 09/17/17 at 10:00 KENZIE BRUNSON NP Sep 20, 2017 11:40
[2017-09-20 20:05] VITALS: BP 110/64; RESP 16
[2017-09-20] MEDS: DOCUSATE SODIUM 100 MG CAP PO SCH (21:00)
[2017-09-21 02:20] VITALS: BP 107/57; RESP 18
[2017-09-21] MEDS: LEVOTHYROXINE 75 MCG TAB PO SCH (06:00)
[2017-09-21] MEDS: ASPIRIN 81 MG TAB PO SCH (08:52)
[2017-09-21] MEDS: LISINOPRIL 5 MG TAB PO SCH (08:53)
[2017-09-21] MEDS: AMLODIPINE 5 MG TAB PO SCH (08:53)
[2017-09-21] MEDS: FERROUS SULFATE (EC) 325 MG TAB PO SCH (08:53)
[2017-09-21] MEDS: FOLIC ACID 1 MG TAB PO SCH (08:53)
[2017-09-21] MEDS: ENOXAPARIN 40 MG/0.4 ML SYG SC SCH (08:53)
[2017-09-21] MEDS: FAMOTIDINE 20 MG TAB PO SCH (08:53)
[2017-09-21] MEDS: HYDROCORTISONE 1% 28.35 GM OINT TOP SCH (08:54)
[2017-09-21 11:23] LABS: BASOPHIL # 0.1 10^3/ul (0.0-0.1); BASOPHILS % 1.1 % (0.0-2.0); EOSINOPHILS # 0.3 10^3/ul (0.0-0.5); EOSINOPHILS % 3.8 % (0.0-7.0); HEMATOCRIT 29.2 % (37.0-47.0); HEMOGLOBIN 9.7 g/dl (12.0-16.0); LYMPHOCYTES # 1.8 10^3/ul (0.8-2.9); LYMPHOCYTES % 24.7 % (15.0-51.0); MEAN CORPUSCULAR HEMOGLOBIN 33.2 pg (29.0-33.0); MEAN CORPUSCULAR HGB CONC 33.2 g/dl (32.0-37.0); MEAN PLATELET VOLUME 9.7 fl (7.4-10.4); MONOCYTE # 0.5 10^3/ul (0.3-0.9); MONOCYTES % 6.7 % (0.0-11.0); NEUTROPHIL # 4.6 10^3/ul (1.6-7.5); NEUTROPHILS % 63.3 % (39.0-77.0); PLATELET COUNT 368 10^3/UL (140-415); RED BLOOD COUNT 2.92 10^6/ul (4.20-5.40); RED CELL DISTRIBUTION WIDTH 13.2 % (11.5-14.5); WHITE BLOOD COUNT 7.3 10^3/ul (4.8-10.8)
[2017-09-21 11:40] LABS: CALCIUM 9.4 mg/dl (8.4-10.2); CREATININE 0.72 mg/dl (0.44-1.00); MAGNESIUM 1.9 mg/dl (1.7-2.5); POTASSIUM 3.5 mmol/L (3.5-5.1)
--- NOTE | 2017-09-21 12:47 | PDOCDIS ---
Discharge Instructions DIAGNOSIS Discharge Diagnosis 1. Left knee effusion, from trauma, pain management and physical therapy 2. Osteoarthritis 3. S/p mechanical fall 4. Hypothyroidism. continue synthroid 5. Mild malnutrition. encourage oral intake. dietitian was consulted 6. suspect hx Dementia. Continue fall precautions. Continue with reorientation. 7. History of psoriasis. Continue had a cortisone complex. 8. Anemia, macrocytic, stable CONDITION Patient Condition: Stable HOME CARE INSTRUCTIONS: Special Diet: regular diet FOLLOW UP/APPOINTMENTS Follow-up Plan PCP in one week Follow-up with in 2weeks [id number] [facility] [address] [place] [address] Office KENZIE BRUNSON NP Sep 21, 2017 12:47
[2017-09-21] MEDS ORDERED: LISI-313 PO (12:50)
[2017-09-21] MEDS ORDERED: ASPI81TA3 PO (12:50)
[2017-09-21] MEDS ORDERED: ALPR0.254 PO (12:50)
[2017-09-21] MEDS ORDERED: ACET325T40 PO (12:50)
[2017-09-21] MEDS ORDERED: DOCU-216 PO (12:50)
[2017-09-21] MEDS ORDERED: FOLI-49 PO (12:50)
--- NOTE | 2017-09-21 12:51 | DS ---
Date/Time of Note Date/Time of Note DATE: 09/21/17 TIME: 12:50 Discharge Summary Admission/Discharge Info Admit Date/Time Sep 07, 2017 at 13:35 Discharge Date/Time Discharge Diagnosis 1. Left knee tricompartmental osteoarthrosis with with joint effusion/ synovitis. No acute fractures. 2. Iron deficiency anemia. 3. Essential hypertension. 4. Hypothyroidism. 5. Questionable dementia. 6. Psoriasis. 7. Debility Patient Condition: Stable Consults ,Orthopedics Procedures 09/03/2017.MRI Left Knee IMPRESSION: 1. Tricompartmental osteoarthrosis, severe and predominant in the lateral femorotibial compartment. 2. Circumferential degenerative tearing and maceration of the lateral meniscus. 3. Moderate to large knee joint effusion with prominent synovitis. 4. No acute fracture or acute ligamentous abnormality. Hospital Course This is a 82-year-old female with a past medical history of hypothyroidism, psoriasis, previous colectomy, possible dementia, who presented to the emergency room for evaluation of left knee pain after patient had fall. X-ray without any acute fractures. Patient was admitted for further evaluation. An MRI of the left knee showed tricompartmental osteoarthrosis with joint effusion/synovitis. Patient was evaluated by orthopedic team and this was not amenable to any surgical procedure. Recommendation was to continue medical management with pain control. Patient was also noted with iron deficiency anemia for which she was continued on iron supplements. Patient was continued on lisinopril and amlodipine for underlying hypertension which remains stable. She was also continued on Synthroid for hypothyroidism. During the course of hospitalization, patient was noted with forgetfulness and confusion with questionable dementia. She was continued on frequent reorientation. For the most part, patient was also refusing lab works in the hospital. For psoriasis, she was continued on topical cortisone cream. Patient was able to tolerate diet and activities well. At this time, patient is feeling back to baseline. However, due to her progressive debility, she was not an appropriate candidate for home discharge and the recommendation was to send patient to an extended care facility. She was then accepted to [facility] long term facility. disposition: Discharged to long term facility. Patient and senior care was given instruction on orthopedic outpatient follow- up and continuation of medical management. On day of discharge, patient vital signs and lab work remained stable. Her mentation is at baseline. Approximately 60 minutes was spent in coordinating the discharge on this patient. Patient was seen in collaboration with . Home Meds Active Scripts Folic Acid* (Folic Acid*) 1 Mg Tablet, 1 MG PO DAILY, #30 TAB Prov:KENZIE BRUNSON V. [employer] 09/21/17 Docusate Sodium (Dok) 100 Mg Capsule, 200 MG PO HS, #30 CAP Prov:KENZIE BRUNSON [employer]. [employer] 09/21/17 Aspirin (Aspirin) 81 Mg Chew, 81 MG PO DAILY, #30 TAB Prov:BRUNSONWILLIAMA V. [employer] 09/21/17 Acetaminophen (MAPAP) 325 Mg Tablet, 650 MG PO Q6H Y for PAIN LEVEL 1-3 OR FEVER , #30 TAB Prov:KENZIE BRUNSON [employer]. [employer] 09/21/17 Alprazolam* (Alprazolam*) 0.25 Mg Tablet, 0.25 MG PO Q8H Y for ANXIETY, #30 TAB Prov:KENZIE BRUNSON NP 09/21/17 Lisinopril* (Lisinopril*) 5 Mg Tablet, 20 MG PO DAILY, #30 TAB Prov:KENZIE BRUNSON NP 09/21/17 Levothyroxine Sodium* (Synthroid*) 75 Mcg Tablet, 75 MCG PO DAILY@06 for 30 Days , TAB Prov:RENE SPRINGER MD 09/13/17 Hydrocodone Bit-Acetaminophen (Hydrocodone Bit-APAP) 5-325MG Tablet, 1 TAB PO Q6H Y for MODERATE PAIN LEVEL 4-6 for 10 Days, TAB Prov:RENE SPRINGER MD 09/13/17 Lisinopril* (Lisinopril*) 5 Mg Tablet, 5 MG PO DAILY for 30 Days, TAB Prov:RENE SPRINGER MD 09/13/17 Amlodipine Besylate* (Amlodipine Besylate*) 5 Mg Tablet, 5 MG PO BID for 30 Days , TAB Prov:RENE SPRINGER MD 09/13/17 Ferrous Sulfate* (Ferrous Sulfate*) 325 Mg Tabec, 325 MG PO DAILY for 30 Days, TAB Prov:RENE SPRINGER MD 09/13/17 Enoxaparin Sodium (Enoxaparin Sodium) 40 Mg/0.4 Ml Syringe, 40 MG SC DAILY for 10 Days Prov:RENE SPRINGER MD 09/13/17 Hydrocortisone* Rectal (Preparation H* Cream) 1% - 26 Gm Cream.gm., 1 APPLIC [place] BID for 7 Days, #1 TUB Prov:HARLEEN KEBEDE MD 05/07/17 Polyethylene Glycol* (Miralax*) 17 Gm Powd.pack, 17 GM PO DAILY, #5 PACKET Prov:HARLEEN KEBEDE MD 05/07/17 Mineral Oil* (Fleet* Mineral Oil Enema) 133 Ml Oil, 133 ML [place] NEEDED Y for CONSTIPATION, #3 ENEMA Prov:HARLEEN KEBEDE MD 05/07/17 Lidocaine (LIDOCAINE) 35.44 Gm Oint...g., 35.44 GM TP BID for 7 Days, #1 TUB Prov:HARLEEN KEBEDE MD 05/07/17 Follow-up Plan PCP in one week Follow-up with -Adan in 2weeks [id number] [facility] [address] [place] [address] Office Primary Care Provider Mick Aquino DO Pending Labs Laboratory Tests Test 09/21/17 11:01 White Blood Count 7.310^3/ul (4.8-10.8) Red Blood Count 2.9210^6/ul (4.20-5.40) Hemoglobin 9.7g/dl (12.0-16.0) Hematocrit 29.2% (37.0-47.0) Mean Corpuscular Volume 100.0fl (82.0-101.0) Mean Corpuscular Hemoglobin 33.2pg (29.0-33.0) Mean Corpuscular Hemoglobin Concent 33.2g/dl (32.0-37.0) Red Cell Distribution Width 13.2% (11.5-14.5) Platelet Count 54884^3/UL (140-415) Mean Platelet Volume 9.7fl (7.4-10.4) Neutrophils % 63.3% (39.0-77.0) Lymphocytes % 24.7% (15.0-51.0) Monocytes % 6.7% (0.0-11.0) Eosinophils % 3.8% (0.0-7.0) Basophils % 1.1% (0.0-2.0) Nucleated Red Blood Cells % 0.0/100WBC (0.0-0.0) Neutrophils # 4.610^3/ul (1.6-7.5) Lymphocytes # 1.810^3/ul (0.8-2.9) Monocytes # 0.510^3/ul (0.3-0.9) Eosinophils # 0.310^3/ul (0.0-0.5) Basophils # 0.110^3/ul (0.0-0.1) Nucleated Red Blood Cells # 0.010^3/ul (0.0-0.0) Sodium Level 143mmol/L (135-144) Potassium Level 3.5mmol/L (3.5-5.1) Chloride Level 104mmol/L (97-110) Carbon Dioxide Level 28mmol/L (21-31) Anion Gap 15 (8-16) Blood Urea Nitrogen 27mg/dl (7-20) Creatinine 0.72mg/dl (0.44-1.00) Glucose Level 109mg/dl (70-220) Calcium Level 9.4mg/dl (8.4-10.2) Magnesium Level 1.9mg/dl (1.7-2.5) KENZIE BRUNSON V. [employer]ER Sep 21, 2017 12:50
== END 2017-09-21 16:00 | DRG 565 ==
LOC: E/R 21:33 → PP2 09-04 05:34 → OBSVTOIN 09-07 13:35
PROVIDERS: ADMIT Family Medicine; ATTEND Family Medicine
DX: M25.462 Effusion, left knee (principal); E44.1 Mild protein-calorie malnutrition; F03.90 Unspecified dementia, unspecified severity, without behavioral disturbance, psychotic disturbance, mood disturbance, and anxiety; M17.12 Unilateral primary osteoarthritis, left knee; Z68.21 Body mass index [BMI] 21.0-21.9, adult; R26.81 Unsteadiness on feet; E03.9 Hypothyroidism, unspecified; L40.9 Psoriasis, unspecified; Z90.49 Acquired absence of other specified parts of digestive tract; I25.10 Atherosclerotic heart disease of native coronary artery without angina pectoris; D50.9 Iron deficiency anemia, unspecified; Z60.2 Problems related to living alone; M65.862 Other synovitis and tenosynovitis, left lower leg; M23.201 Derangement of unspecified lateral meniscus due to old tear or injury, left knee; I10 Essential (primary) hypertension
CPT/HCPCS: 70450; 71010; 73562; 73590; 73721; 80048; 80053; 80061; 80076; 82306; 82607; 82746; 83036; 83540; 83735; 84100; 84439; 84443; 85025; 85610; 85730; 86592; 86803; 86850; 86900; 86901; 87340; 90686; 97110; 97162; G0378; J0360; J1630; J1650; J2060; J2916

== ENCOUNTER 2018-03-27 11:05 | Emergency (ER) | END 2018-04-01 14:32 | disposition home or self-care (01) ==